=== PATIENT | female | born 1980 | race Caucasian/White ===

== ENCOUNTER 2016-10-14 07:11 | Emergency (ER) | payer SELFPAY ==
[2016-10-14] MEDS ORDERED: Diazepam 5 MG TAB ONE (07:48)
[2016-10-14] MEDS ORDERED: Ondansetron HCl/PF 4 MG/2 ML Vial ONE (07:48)
[2016-10-14] MEDS ORDERED: Ketorolac Tromethamine 30 MG/ML VIAL ONE (07:48)
[2016-10-14] MEDS ORDERED: Metoclopramide HCl 10 MG/2 ML VIAL ONE (07:49)
[2016-10-14] MEDS ORDERED: diphenhydrAMINE HCl 50 MG/ML 1 ML VIAL ONE (07:49)
--- NOTE | 2016-10-14 09:02 | ERRECORD ---
[facility] EMERGENCY RECORD HPI HEADACHE (07:45 LLDO) CHIEF COMPLAINT: Patient presents for evaluation of headache, Patient presents for evaluation of migraine headache, pt has long personal and family hx migraines. this one started about 0200 this morning. left sided. pounding and throbbing. considerable nausea w/o vomiting yet. photophobia. HISTORIAN: History provided by patient, History provided by patient's spouse. LOCATION: Symptoms are localized, most severe in the left baptism. QUALITY: Pain is dull in nature, described as aching, described as throbbing. SEVERITY: Maximum severity of symptoms severe, Currently symptoms are severe. TIME COURSE: Sudden onset of symptoms, Symptoms are worsening, Symptoms are constant. ASSOCIATED WITH FEMALE: No associated symptoms, Denies any other complaints, ONLY ABOVE. EXACERBATED BY: Patient's condition exacerbated by eye opening, Patient's condition exacerbated by light. RELIEVED BY: Patient's condition relieved by dark room, Patient's condition relieved by ice. RISK FACTORS: No subarachnoid hemorrhage risk factors, Subarachnoid hemorrahage risk factor analysis completed. ROS CONSTITUTIONAL: Historian reports fatigue. (07:48 LLDO) EYES: Historian reports photophobia. (07:48 LLDO) ENT: Negative ears, nose, throat review of systems, Historian denies epistaxis, denies rhinorrhea, denies sinus pain, denies sore throat. (07:52 LLDO) GI: Historian reports anorexia, reports appetite changes, reports nausea. (07:48 LLDO) MUSCULOSKELETAL: Negative musculoskeletal review of systems, Historian denies arthralgias, denies back pain, denies injury, denies myalgias, denies neck pain. (07:52 LLDO) SKIN: Negative skin review of systems, Historian denies cellulitis, denies rash, denies skin changes, denies skin lesions. (07:52 LLDO) NEUROLOGIC: Historian denies confusion, denies dizziness, denies dysphasia, denies focal weakness, denies gait changes, reports headache, denies irritability, denies lethargy, denies mental status changes. (07:48 LLDO) HEMO/LYMPHATIC: Normal hematologic/lymphatic system review, Historian denies abnormal blood clotting, denies gum bleeding, denies petechiae. (07:52 LLDO) ALLERGIC/IMMUNOLOGIC: Normal allergy/immunologic system review, Historian denies eczema, denies environmental allergies, denies food allergies. (07:52 LLDO) PSYCHIATRIC: Negative psychiatric review of systems, Historian denies alcohol abuse, denies anxiety, denies depression, denies drug abuse, denies hallucinations. (07:52 LLDO) &a-1R&a+25V*p+0X*[id number]*c202B*c15G*c2P*p-0X&a-25V&a+1R Name: Leona Hughes : 1980 6 MedRec: [id number] AcctNum: [id number] Prepared: Bridget Oct 14, 2016 09:22 by Interface Page 1 of 4 pMD [facility] EMERGENCY RECORD NOTES: All systems reviewed, negative except as described above. (07:48 LLDO) PAST MEDICAL HISTORY MEDICAL HISTORY: No past medical history, Notes: frequent headaches, Flu vaccine up to date, Tetanus not up to date, Pneumococcal vaccine not up to date. (07:27 SCHI) FEMALE SURGICAL HISTORY: Surgical history of cholecystectomy, Surgical history of tubal ligation, Surgical history of cholecystectomy, Surgical history of tubal ligation. (07:27 SCHI) SOCIAL HISTORY: Patient denies alcohol use, Patient denies drug use, Patient currently uses tobacco, smokes cigarettes, daily, Patient has smoked for 30 years, Patient smokes 1 pack per day, Lives at home, with family. (07:27 SCHI) NOTES: Nursing records reviewed, Agree with nursing records, Medication list reviewed. (07:52 LLDO) KNOWN ALLERGIES codeine sulfate Penicillins traMADol: Reaction: Nausea CURRENT MEDICATIONS No recorded medications VITAL SIGNS VITAL SIGNS: BP: 145/101, Pulse: 93, Resp: 20, Temp: 97.8 (Tympanic), Pain: 10 (Constant), O2 sat: 97 on Room Air, Time: 10/14/2016 07:20. (07:20 SCHI) BP: 149/89, Pulse: 84, Resp: 18, Pain: 9, O2 sat: 100 on 4L Oxygen, Time: 10/14/2016 08:05. (08:05 SCHI) BP: 137/81, Pulse: 75, Resp: 18, O2 sat: 97, Time: 10/14/2016 08:18. (08:18 SCHI) BP: 128/81, Pulse: 79, Resp: 18, Pain: 0, O2 sat: 95 on Room Air, Time: 10/14/2016 08:33. (08:33 SCHI) BP: 115/68, Pulse: 75, Resp: 18, Temp: 97. (Tympanic), Pain: 0, O2 sat: 96 on Room Air, Time: 10/14/2016 08:45. (08:45 SCHI) PHYSICAL EXAM CONSTITUTIONAL: Vital Signs Reviewed, Patient afebrile, Pulse normal, Blood pressure, BP ELEVATED, Respiratory rate normal, Patient appears, uncomfortable, Patient appears, in severe pain distress, Patient alert and oriented to person, place and time, Nursing notes reviewed. (07:51 LLDO) HEAD: Head exam normal, Head exam included findings of head atraumatic, normocephalic. (07:52 LLDO) EYES: Eye exam included findings of eyelids normal to inspection, Pupils equally round and reactive to light, Extraocular muscles &a-1R&a+25V*p+0X*[id number]*c202B*c15G*c2P*p-0X&a-25V&a+1R Name: Leona Hughes : 1980 F36 MedRec: [id number] AcctNum: [id number] Prepared: Bridget Oct 14, 2016 09:22 by Interface Page 2 of 4 pMD [facility] EMERGENCY RECORD intact, Conjunctiva normal, Sclera normal, Fundoscopic exam normal. (07:51 LLDO) ENT: ENT exam normal, Ear exam normal, Nose exam normal. (07:52 LLDO) NECK: Neck exam included findings of normal range of motion, Trachea midline, Thyroid normal, no meningeal signs, no cervical adenopathy, no tenderness. (07:51 LLDO) BACK: Back exam normal, Back exam included findings of normal inspection, range of motion normal. (07:52 LLDO) UPPER EXTREMITY: Upper extremity exam normal, Upper extremity exam included findings of inspection normal, Range of motion normal. (07:52 LLDO) LOWER EXTREMITY: Lower extremity exam normal, Lower extremity exam included findings of inspection normal, Range of motion normal. (07:52 LLDO) NEURO: Neuro exam findings include patient oriented to person, place and time, Speech normal, Gait normal, Memory normal, Cranial nerves intact, Deep tendon reflexes normal, no focal motor deficits, no focal sensory deficits, no cerebellar deficits, no nystagmus. (07:51 LLDO) SKIN: Skin exam normal, Skin exam included findings of skin warm, dry, and normal in color, no rash. (07:52 LLDO) PSYCHIATRIC: Psychiatric exam normal, Psychiatric exam included findings of patient oriented to person place and time, Normal affect. (07:52 LLDO) MEDICATION ADMINISTRATION SUMMARY Drug Name: Octamide Pfs, Dose Ordered: 20 mg, Route: IV Push, Status: Given, Time: 08:05 10/14/2016, Drug Name: Benadryl injection, Dose Ordered: 50 mg, Route: IV Push, Status: Given, Time: 08:00 10/14/2016, Drug Name: Toradol injection, Dose Ordered: 30 mg, Route: IV Push, Status: Given, Time: 07:59 10/14/2016, Drug Name: Zofran intravenous, Dose Ordered: 8 mg, Route: IV Push, Status: Given, Time: 07:58 10/14/2016, Drug Name: Valium oral, Dose Ordered: 10 mg, Route: Oral, Status: Given, Time: 07:57 10/14/2016, Drug Name: *sodium chloride 0.9 % intravenous, Dose Ordered: 1 L, Route: IV Fluid Infusion, Status: Given, Time: 07:44 10/14/2016, *Additional information available in notes, Detailed record available in Medication Service section. DOCTOR NOTES (08:52 LLDO) TEXT: headache gone. bp normal. re-exam normal. will d/c and let pcp f/u. PATIENT PLAN: The patient will be discharged, The patient will follow up with primary care physician. PROBLEM LIST &a-1R&a+25V*p+0X*[id number]*c202B*c15G*c2P*p-0X&a-25V&a+1R Name: Leona Hughes : 1980 F36 MedRec: [id number] AcctNum: [id number] Prepared: Bridget Oct 14, 2016 09:22 by Interface Page 3 of 4 pMD [facility] EMERGENCY RECORD No recorded problems DIAGNOSIS (08:53 LLDO) FINAL: PRIMARY: Migraine (unspecified). PRESCRIPTION No recorded prescriptions DISPOSITION PATIENT: Disposition Type: Discharge, Disposition: *Discharge Home. (08:53 ERVIN) Patient left the department. (09:15 MARILEE) Swenson: ERVIN=MD Logan, Maco HUNT=BETITO Garcia, Slinda &a-1R&a+25V*p+0X*[id number]*c202B*c15G*c2P*p-0X&a-25V&a+1R Name: Leona Hughes : 1980 F36 MedRec: [id number] AcctNum: [id number] Prepared: Bridget Oct 14, 2016 09:22 by Interface Page 4 of 4 pMD [facility]TDD
--- NOTE | 2016-10-14 09:06 | PICIS ---
[facility] EMERGENCY RECORD TRIAGE (TueOct 14, 2016 07:22 SCHI) TRIAGE NOTES: HEADACHE SINCE 2AM. (TueOct 14, 2016 07:22 SCHI) PATIENT: NAME: Leona Hughes, AGE: 36, GENDER: female, : Tue1980, TIME OF GREET: TueOct 14, 2016 07:12, PREFERRED LANGUAGE: Croatian, ETHNICITY: Not or , FALL RISK: NO, ECODE BILLING MAP: [facility], SSN: [id number], Zip Code: [address], KG WEIGHT: 92.99, PHONE: , , , PERSON ID: [id number], PCP: MD JACINTA, LALIT. (TueOct 14, 2016 07:22 SCHI) COMPLAINT: SEVERE HEADACHE. (TueOct 14, 2016 07:22 SCHI) ADMISSION: URGENCY: 4 Non Urgent, ADMISSION SOURCE: Home, TRANSPORT: Walk-in, BED: ED -05. (TueOct 14, 2016 07:22 SCHI) ASSESSMENT: Assessment: ALERT AND ORIENTED X 4, SKIN WARM AND DRY RESP EVEN AND UNLABORED,, Symptoms began 2am. (07:27 SCHI) PAIN: Patient complains of pain described as, Location head, Pain is constant. (07:27 SCHI) TRIAGE SCREENING: Patient denies suicidal ideation, Patient denies presence of domestic violence. (07:27 SCHI) PROVIDERS: TRIAGE NURSE: Hernan Garcia RN. (TueOct 14, 2016 07:22 SCHI) VITAL SIGNS: BP 145/101, Pulse 93, Resp 20, Temp 97.8, (Tympanic), Pain 10, (Constant), O2 Sat 97, on Room Air, Time 10/14/2016 07:20. (07:20 SCHI) PREVIOUS VISIT ALLERGIES: codeine sulfate, Penicillins. (TueOct 14, 2016 07:22 SCHI) codeine sulfate, Penicillins. (07:27 SCHI) KNOWN ALLERGIES codeine sulfate Penicillins traMADol: Reaction: Nausea CURRENT MEDICATIONS No recorded medications VITAL SIGNS VITAL SIGNS: BP: 145/101, Pulse: 93, Resp: 20, Temp: 97.8 (Tympanic), Pain: 10 (Constant), O2 sat: 97 on Room Air, Time: 10/14/2016 07:20. (07:20 SCHI) BP: 149/89, Pulse: 84, Resp: 18, Pain: 9, O2 sat: 100 on 4L Oxygen, Time: 10/14/2016 08:05. (08:05 SCHI) BP: 137/81, Pulse: 75, Resp: 18, O2 sat: 97, Time: 10/14/2016 08:18. (08:18 SCHI) BP: 128/81, Pulse: 79, Resp: 18, Pain: 0, O2 sat: 95 on Room Air, Time: 10/14/2016 08:33. (08:33 SCHI) BP: 115/68, Pulse: 75, Resp: 18, Temp: 97. (Tympanic), Pain: 0, O2 sat: 96 on Room Air, Time: 10/14/2016 08:45. (08:45 SCHI) NURSING ASSESSMENT: HEADACHE (07:33 SCHI) &a-1R&a+25V*p+0X*o6349N*c202B*c15G*c2P*p-0X&a-25V&a+1R Name: Leona Hughes : 1980 F36 MedRec: [id number] AcctNum: [id number] Prepared: Bridget Oct 14, 2016 09:28 by Interface Page 1 of 8 pMD [facility] EMERGENCY RECORD CONSTITUTIONAL: Patient arrives ambulatory, Gait steady, History obtained from patient, Patient appears comfortable, Patient cooperative, Patient alert, Oriented to person, place and time, Skin warm, Skin dry, Skin normal in color, Mucous membranes pink, Mucous membranes moist, Patient is well-groomed, Patient complains of HEADACHE AND NAUSEA, HEADACHE STARTED 2AM. PAIN: throbbing pain, to the right parietal region, on a scale 0-10 patient rates pain as 10. HEADACHE: history of migraines. NEURO: Pupils equally round and reactive to light, Able to close eyes, Hand grasps equal, Notes: NAUSEA NO VOMITING. NOTES: Patient tolerated procedure well. NURSING PROCEDURE: MEAT AND POULTRY INSPECTOR (07:46 SCHI) MEAT AND POULTRY INSPECTOR: , Patient placed on non-invasive blood pressure monitor, Patient placed on continuous pulse oximetry, Adult/pediatric oxisensor applied. NURSING PROCEDURE: DISCHARGE NOTE (09:00 SCHI) DISCHARGE: Patient discharged to home, ambulating without assistance, family driving, accompanied by other family member, Summary of Care printed/ provided, Patient requested and was provided an electronic copy of Discharge Instructions, Transition record given to patient, Discharge instructions given to patient, Simple or moderate discharge teaching performed, Medication reconciliation form given, Above person(s) verbalized understanding of discharge instructions and follow-up care, Patient treated and evaluated by physician. BELONGINGS: Belongings and valuables with patient at time of discharge include:, Belongings remain with patient, Valuables remain with patient. SAFETY: Side rails up, Cart/Stretcher in lowest position, Family at bedside, Hospital ID band on. NURSING PROCEDURE: IV PATIENT IDENITIFIER: Patient's identity verified by hospital ID bracelet, Patient's identity verified by family member. (07:44 SCHI) IV SITE 1: IV therapy indicated for hydration, IV therapy indicated for medication administration, IV established, to the left hand, using a 22 gauge catheter, in one attempt, IV site prepped with chloraprep, Flushed with normal saline (mls): 10, Labs drawn at time of placement, labeled in the presence of the patient and sent to lab, Saline lock established. (07:44 SCHI) FOLLOW-UP SITE 1: After procedure, 2x3 ensure dressing applied, After procedure, no drainage at IV site, After procedure, no swelling at IV site, After procedure, no redness at IV site. (07:44 SCHI) After procedure, 2x3 ensure dressing applied, After procedure, no drainage at IV site, After procedure, no swelling at IV site, After procedure, no redness at IV site, IV discontinued, due to patient being discharged, catheter intact. (09:00 SCHI) &a-1R&a+25V*p+0X*j7820M*c202B*c15G*c2P*p-0X&a-25V&a+1R Name: Leona Hughes : 1980 F36 MedRec: [id number] AcctNum: [id number] Prepared: Bridget Oct 14, 2016 09:28 by Interface Page 2 of 8 pMD [facility] EMERGENCY RECORD NURSING PROCEDURE: OXYGEN THERAPY (07:45 SCHI) OXYGEN THERAPY: 5L oxygen given, via nasal cannula applied. ORDER DETAILS Order Name: ERRT Oxygen Usage ER, Status: Active, Time: 07:32 10/14/2016, User: LL, - Ordered for: MD Ford Lloyd, - Entered by: MD Ford Lloyd - [facility] Oct 14, 2016 07:32, - Quantity: 1, Order Name: SALINE LOCK, Status: Done, Time: 07:46 10/14/2016, User: SCHGianna, - Ordered for: MD Ford Lloyd, - Entered by: MD Ford Lloyd - [facility] Oct 14, 2016 07:32, - Quantity: 1. MEDICATION ADMINISTRATION SUMMARY Drug Name: Octamide Pfs, Dose Ordered: 20 mg, Route: IV Push, Status: Given, Time: 08:05 10/14/2016, Drug Name: Benadryl injection, Dose Ordered: 50 mg, Route: IV Push, Status: Given, Time: 08:00 10/14/2016, Drug Name: Toradol injection, Dose Ordered: 30 mg, Route: IV Push, Status: Given, Time: 07:59 10/14/2016, Drug Name: Zofran intravenous, Dose Ordered: 8 mg, Route: IV Push, Status: Given, Time: 07:58 10/14/2016, Drug Name: Valium oral, Dose Ordered: 10 mg, Route: Oral, Status: Given, Time: 07:57 10/14/2016, Drug Name: *sodium chloride 0.9 % intravenous, Dose Ordered: 1 L, Route: IV Fluid Infusion, Status: Given, Time: 07:44 10/14/2016, *Additional information available in notes, Detailed record available in Medication Service section. MEDICATION SERVICE Benadryl injection: Order: Benadryl injection (diphenhydramine HCl) - Dose: 50 mg : IV Push Schedule: Now Ordered by: Mcao Ford MD Entered by: Maco Ford MD [facility] Oct 14, 2016 07:34 , Acknowledged by: Hernan Garcia RN [facility] Oct 14, 2016 07:47 Documented as given by: Hernan Garcia RN [facility] Oct 14, 2016 08:00 Patient, Medication, Dose, Route and Time verified prior to administration. IV SITE #1 IVP, subsequent different medication, Slowly, Awake and alert- acceptable. Octamide Pfs: Order: Octamide Pfs (metoclopramide HCl) - Dose: 20 mg : IV Push Ordered by: Maco Ford MD Entered by: Maco Ford MD [facility] Oct 14, 2016 07:34 , &a-1R&a+25V*p+0X*n6776D*c202B*c15G*c2P*p-0X&a-25V&a+1R Name: Leona Hughes : 1980 F36 MedRec: [id number] AcctNum: [id number] Prepared: [facility] Oct 14, 2016 09:28 by Interface Page 3 of 8 pMD [facility] EMERGENCY RECORD Acknowledged by: Hernan Garcia RN [facility] Oct 14, 2016 07:48 Documented as given by: Hernan Garcia RN [facility] Oct 14, 2016 08:05 Patient, Medication, Dose, Route and Time verified prior to administration. IV SITE #1 IVP, subsequent different medication, Slowly, Awake and alert- acceptable. sodium chloride 0.9 % intravenous: Order: sodium chloride 0.9 % intravenous (0.9 % sodium chloride) - Dose: 1 L : IV Fluid Infusion Notes: (Bolus) after bolus, lock Ordered by: Maco Ford MD Entered by: Maco Ford MD [facility] Oct 14, 2016 07:33 Documented as given by: Hernan Garcia RN [facility] Oct 14, 2016 07:44 Patient, Medication, Dose, Route and Time verified prior to administration. IV SITE #1 IV fluids established for hydration, IV SITE #1 into left hand, IV SITE #1 1st bag hung, amount 1 Liter hung, IV SITE #1 bolus of 1000 ml established, IV SITE #1 Rate of bolus, wide open, via primary tubing, Catheter placement confirmed via flush prior to administration, IV site without signs or symptoms of infiltration during medication administration, No swelling during administration, No drainage during administration, IV flushed after administration, Correct patient, time, route, dose and medication confirmed prior to administration, Patient advised of actions and side-effects prior to administration, Allergies confirmed and medications reviewed prior to administration. : Follow Up : Response assessment performed, No signs or symptoms of allergic reaction noted, Decreased pain, Decreased symptoms, _IV SITE #1:_, IV fluid infusion discontinued, on TueOct 14, 2016 09:00, Total fluid hydration time IV site 1 1 hour, 20 minutes, ., Total amount infused: 1000, IV Discontinued with catheter intact. [facility]09:00 [facility] Toradol injection: Order: Toradol injection (ketorolac tromethamine) - Dose: 30 mg : IV Push Schedule: Now Ordered by: Maco Ford MD Entered by: Maco Ford MD [facility] Oct 14, 2016 07:33 , Acknowledged by: Hernan Garcia RN [facility] Oct 14, 2016 07:48 Documented as given by: Hernan Garcia RN [facility] Oct 14, 2016 07:59 Patient, Medication, Dose, Route and Time verified prior to administration. IV SITE #1 IVP, subsequent different medication, Awake and alert- acceptable. Valium oral: Order: Valium oral (diazepam) - Dose: 10 mg : Oral Schedule: Now Ordered by: Maco Ford MD Entered by: Maco Ford MD [facility] Oct 14, 2016 07:35 , Acknowledged by: Hernan Garcia RN [facility] Oct 14, 2016 07:49 Documented as given by: Hernan Garcia RN [facility] Oct 14, 2016 07:57 &a-1R&a+25V*p+0X*s4056J*c202B*c15G*c2P*p-0X&a-25V&a+1R Name: Leona Hughes : 1980 F36 MedRec: [id number] AcctNum: [id number] Prepared: TueOct 14, 2016 09:28 by Interface Page 4 of 8 pMD [facility] EMERGENCY RECORD Patient, Medication, Dose, Route and Time verified prior to administration. Site: Medication administered P.O., Correct patient, time, route, dose and medication confirmed prior to administration, Patient advised of actions and side-effects prior to administration, Allergies confirmed and medications reviewed prior to administration. Zofran intravenous: Order: Zofran intravenous (ondansetron HCl) - Dose: 8 mg : IV Push Schedule: Now Ordered by: Maco Ford MD Entered by: Maco Ford MD [facility] Oct 14, 2016 07:33 , Acknowledged by: Hernan Garcia RN [facility] Oct 14, 2016 07:47 Documented as given by: Hernan Garcia RN [facility] Oct 14, 2016 07:58 Patient, Medication, Dose, Route and Time verified prior to administration. IV SITE #1 IVP, initial medication, Catheter placement confirmed via flush prior to administration, IV site without signs or symptoms of infiltration during medication administration, No swelling during administration, No drainage during administration, IV flushed after administration, Correct patient, time, route, dose and medication confirmed prior to administration, Patient advised of actions and side-effects prior to administration, Allergies confirmed and medications reviewed prior to administration. HPI HEADACHE (07:45 LLDO) CHIEF COMPLAINT: Patient presents for evaluation of headache, Patient presents for evaluation of migraine headache, pt has long personal and family hx migraines. this one started about 0200 this morning. left sided. pounding and throbbing. considerable nausea w/o vomiting yet. photophobia. HISTORIAN: History provided by patient, History provided by patient's spouse. LOCATION: Symptoms are localized, most severe in the left roman catholic. QUALITY: Pain is dull in nature, described as aching, described as throbbing. SEVERITY: Maximum severity of symptoms severe, Currently symptoms are severe. TIME COURSE: Sudden onset of symptoms, Symptoms are worsening, Symptoms are constant. ASSOCIATED WITH FEMALE: No associated symptoms, Denies any other complaints, ONLY ABOVE. EXACERBATED BY: Patient's condition exacerbated by eye opening, Patient's condition exacerbated by light. RELIEVED BY: Patient's condition relieved by dark room, Patient's condition relieved by ice. RISK FACTORS: No subarachnoid hemorrhage risk factors, Subarachnoid hemorrahage risk factor analysis completed. ROS CONSTITUTIONAL: Historian reports fatigue. (07:48 LLDO) EYES: Historian reports photophobia. (07:48 LLDO) &a-1R&a+25V*p+0X*a9124M*c202B*c15G*c2P*p-0X&a-25V&a+1R Name: Leona Hughes : 1980 F36 MedRec: [id number] AcctNum: [id number] Prepared: Bridget Oct 14, 2016 09:28 by Interface Page 5 of 8 pMD [facility] EMERGENCY RECORD ENT: Negative ears, nose, throat review of systems, Historian denies epistaxis, denies rhinorrhea, denies sinus pain, denies sore throat. (07:52 LLDO) GI: Historian reports anorexia, reports appetite changes, reports nausea. (07:48 LLDO) MUSCULOSKELETAL: Negative musculoskeletal review of systems, Historian denies arthralgias, denies back pain, denies injury, denies myalgias, denies neck pain. (07:52 LLDO) SKIN: Negative skin review of systems, Historian denies cellulitis, denies rash, denies skin changes, denies skin lesions. (07:52 LLDO) NEUROLOGIC: Historian denies confusion, denies dizziness, denies dysphasia, denies focal weakness, denies gait changes, reports headache, denies irritability, denies lethargy, denies mental status changes. (07:48 LLDO) HEMO/LYMPHATIC: Normal hematologic/lymphatic system review, Historian denies abnormal blood clotting, denies gum bleeding, denies petechiae. (07:52 LLDO) ALLERGIC/IMMUNOLOGIC: Normal allergy/immunologic system review, Historian denies eczema, denies environmental allergies, denies food allergies. (07:52 LLDO) PSYCHIATRIC: Negative psychiatric review of systems, Historian denies alcohol abuse, denies anxiety, denies depression, denies drug abuse, denies hallucinations. (07:52 LLDO) NOTES: All systems reviewed, negative except as described above. (07:48 LLDO) PAST MEDICAL HISTORY MEDICAL HISTORY: No past medical history, Notes: frequent headaches, Flu vaccine up to date, Tetanus not up to date, Pneumococcal vaccine not up to date. (07:27 SCHI) FEMALE SURGICAL HISTORY: Surgical history of cholecystectomy, Surgical history of tubal ligation, Surgical history of cholecystectomy, Surgical history of tubal ligation. (07:27 SCHI) SOCIAL HISTORY: Patient denies alcohol use, Patient denies drug use, Patient currently uses tobacco, smokes cigarettes, daily, Patient has smoked for 30 years, Patient smokes 1 pack per day, Lives at home, with family. (07:27 SCHI) NOTES: Nursing records reviewed, Agree with nursing records, Medication list reviewed. (07:52 LLDO) PHYSICAL EXAM CONSTITUTIONAL: Vital Signs Reviewed, Patient afebrile, Pulse normal, Blood pressure, BP ELEVATED, Respiratory rate normal, Patient appears, uncomfortable, Patient appears, in severe pain distress, Patient alert and oriented to person, place and time, Nursing notes reviewed. (07:51 LLDO) HEAD: Head exam normal, Head exam included findings of head &a-1R&a+25V*p+0X*v5287G*c202B*c15G*c2P*p-0X&a-25V&a+1R Name: Leona Hughes : 1980 F36 MedRec: [id number] AcctNum: [id number] Prepared: TueOct 14, 2016 09:28 by Interface Page 6 of 8 pMD [facility] EMERGENCY RECORD atraumatic, normocephalic. (07:52 LLDO) EYES: Eye exam included findings of eyelids normal to inspection, Pupils equally round and reactive to light, Extraocular muscles intact, Conjunctiva normal, Sclera normal, Fundoscopic exam normal. (07:51 LLDO) ENT: ENT exam normal, Ear exam normal, Nose exam normal. (07:52 LLDO) NECK: Neck exam included findings of normal range of motion, Trachea midline, Thyroid normal, no meningeal signs, no cervical adenopathy, no tenderness. (07:51 LLDO) BACK: Back exam normal, Back exam included findings of normal inspection, range of motion normal. (07:52 LLDO) UPPER EXTREMITY: Upper extremity exam normal, Upper extremity exam included findings of inspection normal, Range of motion normal. (07:52 LLDO) LOWER EXTREMITY: Lower extremity exam normal, Lower extremity exam included findings of inspection normal, Range of motion normal. (07:52 LLDO) NEURO: Neuro exam findings include patient oriented to person, place and time, Speech normal, Gait normal, Memory normal, Cranial nerves intact, Deep tendon reflexes normal, no focal motor deficits, no focal sensory deficits, no cerebellar deficits, no nystagmus. (07:51 LLDO) SKIN: Skin exam normal, Skin exam included findings of skin warm, dry, and normal in color, no rash. (07:52 LLDO) PSYCHIATRIC: Psychiatric exam normal, Psychiatric exam included findings of patient oriented to person place and time, Normal affect. (07:52 LLDO) EVENTS TRANSFER: Triage to Emergency Main ED -05. (TueOct 14, 2016 07:22 SCHI) Removed from Emergency Main ED -05. (09:15 SCHI) DOCTOR NOTES (08:52 LLDO) TEXT: headache gone. bp normal. re-exam normal. will d/c and let pcp f/u. PATIENT PLAN: The patient will be discharged, The patient will follow up with primary care physician. PROBLEM LIST No recorded problems DIAGNOSIS (08:53 LLDO) FINAL: PRIMARY: Migraine (unspecified). DISPOSITION PATIENT: Disposition Type: Discharge, Disposition: *Discharge Home. (08:53 LLDO) Patient left the department. (09:15 SCHI) &a-1R&a+25V*p+0X*s5670P*c202B*c15G*c2P*p-0X&a-25V&a+1R Name: Leona Hughes : 1980 F36 MedRec: [id number] AcctNum: [id number] Prepared: TueOct 14, 2016 09:28 by Interface Page 7 of 8 pMD [facility] EMERGENCY RECORD INSTRUCTION (08:54 LLDO) DISCHARGE: MIGRAINE HEADACHE. FOLLOWUP: MD JACINTA, LALIT, [facility], [address] [place] [id number], [phone], Follow up with Primary Care Physician as needed. SPECIAL: Follow-up with your PCP. PRESCRIPTION No recorded prescriptions IMAGING (09:11 SCHI) *DISCHARGE INSTRUCTIONS RECEIPT: Image captured from scanner. *SUPPLY CHARGE SHEET: Image captured from scanner. ADMIN DIGITAL SIGNATURE: MD Ford Lloyd. (08:54 LLDO) BETITO Garcia, Hernan. (09:15 SCHI) Swenson: LLDO=MD Ford Lloyd SCHI=BETITO Garcia Slinda &a-1R&a+25V*p+0X*n3960X*c202B*c15G*c2P*p-0X&a-25V&a+1R Name: Leona Hughes : 1980 F36 MedRec: [id number] AcctNum: [id number] Prepared: TueOct 14, 2016 09:28 by Interface Page 8 of 8 pMD [facility] MEDICATION RECONCILIATION You were seen in the Emergency Department on: TueOct 14, 2016 KNOWN ALLERGIES codeine sulfate Penicillins traMADol: Reaction: Nausea MEDICATIONS GIVEN WHILE IN THE EMERGENCY DEPARTMENT sodium chloride 0.9 % intravenous (0.9 % sodium chloride) - Dose: 1 liter(s) : IV Fluid Infusion Toradol injection (ketorolac tromethamine) - Dose: 30 milligram(s) : IV Push Zofran intravenous (ondansetron HCl) - Dose: 8 milligram(s) : IV Push Benadryl injection (diphenhydramine HCl) - Dose: 50 milligram(s) : IV Push Octamide Pfs (metoclopramide HCl) - Dose: 20 milligram(s) : IV Push Valium oral (diazepam) - Dose: 10 milligram(s) : Oral Notes from the emergency department Reviewed with family Reviewed with patient &a-1R&a+25V*p+0X*t0357U*c202B*c15G*c2P*p-0X&a-25V&a+1R Name: Leona Hughes : 1980 F36 MedRec: [id number] AcctNum: [id number] Prepared: TueOct 14, 2016 09:28 by Interface pMPadmaja MICHELLE
[2016-10-14] MEDS ORDERED: Sodium Chloride 0.9% 1,000 ML BAG ONE (13:21)
== END 2016-10-14 09:00 | disposition home or self-care (01) ==
LOC: MADERS 07:11
DX: G43.909 Migraine, unspecified, not intractable, without status migrainosus (principal); F17.210 Nicotine dependence, cigarettes, uncomplicated
CPT/HCPCS: 96361; 96374; 96375; J1200; J1885; J2405; J2765; J7050

== ENCOUNTER 2016-11-24 13:34 | Emergency (ER) | payer SELFPAY ==
--- NOTE | 2016-11-24 14:02 | RAD ---
FRONTAL VIEW CHEST: Date: 11/24/16 COMPARISON: 02/06/08. INDICATION: Chest pain. FINDINGS: There is no consolidation, effusion, or pneumothorax. The cardiac silhouette is normal in size. IMPRESSION: Stable chest, without consolidation. POS: CHERRI
[2016-11-24] MEDS ORDERED: Lidocaine Viscous Sol 2% 15 ml UD Cup ONE (14:04)
[2016-11-24] MEDS ORDERED: Mag-Al Plus 1200 MG/1200 MG/120 MG/30 ML UDCUP ONE (14:04)
[2016-11-24 14:12] LABS: #Basophils 0.1 thou/uL (0.0-0.2); #Eosinphils 0.3 thou/uL (0.0-0.7); #Lymphocytes 1.9 thou/uL (1.20-3.40); #Monocytes 0.5 thou/uL (0.11-0.59); #Neutrophils 7.8 thou/uL (1.40-6.50); %Basophils 1.1 % (0.0-1.0); %Eosinophils 2.9 % (0.0-10.0); %Lymphocytes 18.2 % (21.0-51.0); %Monocytes 4.5 % (0.0-10.0); %Neutrophils 73.3 % (42.0-75.0); Hemoglobin 14.4 g/dL (12.0-16.0); Mean Corpuscular HGB CONC 33.5 g/dL (32.0-36.0); Mean Corpuscular Hemoglobin 31.4 pg (27.0-31.0); Mean Corpuscular Volume 93.8 fl (81.0-99.0); Mean Platelet Volume 10.4 fL (7.4-10.4); Platelet Count 244 thou/uL (130-400); RBC Distribution Width 12.5 % (11.5-14.5); Red Blood Cell (RBC) Count 4.58 mill/uL (4.20-5.40); White Blood Cell (WBC) Count 10.6 thou/uL (4.8-10.8)
[2016-11-24 14:26] LABS: CKMB 1.9 ng/mL (0-6.6)
[2016-11-24 14:28] LABS: BHCG - Serum NEGATIVE (NEGATIVE)
[2016-11-24 14:29] LABS: Pregs Control Background? CLEAR/WHITE (CLR/WHITE); Pregs Control Bar Appear? YES (CONTROL BAR)
[2016-11-24 14:30] LABS: ALT (SGPT) 18 U/L (0-55); AST (SGOT) 18 U/L (5-34); Albumin 4.1 g/dL (3.5-5.0); Alkaline Phosphatase 114 U/L (40-150); Anion Gap 15 mmol/L (10-20); BUN (Urea Nitrogen) 9 mg/dL (7.0-18.7); Bilirubin, Total Less than 0.3 mg/dL (0.2-1.2); Calc. Creatinine Clearance 0 mL/min (70-130); Calcium 9.1 mg/dL (7.8-10.44); Carbon Dioxide 22 mmol/L (22-29); Chloride 105 mmol/L (98-107); Estimated GFR-MDRD Greater than 90; Globulin 2.6 g/dL (2.4-3.5); Glucose 132 mg/dL (70-105); Lipase 19 U/L (8-78); Protein, Total 6.7 g/dL (6.0-8.3); Sodium 138 mmol/L (136-145)
== END 2016-11-24 15:23 | disposition home or self-care (01) ==
LOC: MADERS 13:34
DX: R10.13 Epigastric pain (principal); F41.9 Anxiety disorder, unspecified; F17.210 Nicotine dependence, cigarettes, uncomplicated
CPT/HCPCS: 36415; 71010; 80053; 82553; 83690; 84484; 84703; 85025; 93005

== ENCOUNTER 2017-01-24 15:13 | Emergency (ER) | payer MEDICAID, SELFPAY ==
[2017-01-24] MEDS ORDERED: Ketorolac Tromethamine 30 MG/ML VIAL ONE (15:36)
== END 2017-01-24 15:55 | disposition home or self-care (01) ==
LOC: MADERS 15:13
DX: B34.9 Viral infection, unspecified (principal); K03.81 Cracked tooth; F17.210 Nicotine dependence, cigarettes, uncomplicated
CPT/HCPCS: 96372; J1885

== ENCOUNTER 2017-02-17 09:42 | Emergency (ER) | payer MEDICAID ==
[2017-02-17] MEDS ORDERED: diphenhydrAMINE HCl 50 MG/ML 1 ML VIAL ONE (10:24)
[2017-02-17] MEDS ORDERED: Ketorolac Tromethamine 30 MG/ML VIAL ONE (10:24)
[2017-02-17] MEDS ORDERED: Metoclopramide HCl 10 MG/2 ML VIAL ONE (10:24)
[2017-02-17] MEDS ORDERED: Sodium Chloride 0.9% 1,000 ML BAG ONE (14:20)
== END 2017-02-17 11:45 | disposition home or self-care (01) ==
LOC: MADERS 09:42
DX: G43.829 Menstrual migraine, not intractable, without status migrainosus (principal); F17.210 Nicotine dependence, cigarettes, uncomplicated
CPT/HCPCS: 96361; 96374; 96375; J1200; J1885; J2765; J7050

== ENCOUNTER 2017-03-19 09:24 | Emergency (ER) | payer MEDICAID, SELFPAY ==
[2017-03-19] MEDS ORDERED: Cephalexin 500 MG CAP ONE (10:00)
[2017-03-19] MEDS ORDERED: Benzonatate 100 MG CAP ONE (10:00)
[2017-03-19] MEDS ORDERED: Oxymetazoline HCl 0.05% ( 15 ML ) ONE (10:00)
== END 2017-03-19 10:10 | disposition home or self-care (01) ==
LOC: MADERS 09:24
DX: J01.90 Acute sinusitis, unspecified (principal); G43.909 Migraine, unspecified, not intractable, without status migrainosus; F17.210 Nicotine dependence, cigarettes, uncomplicated; Z79.899 Other long term (current) drug therapy
CPT/HCPCS: 99283

== ENCOUNTER 2017-04-17 07:21 | Emergency (ER) | payer MEDICAID, SELFPAY ==
[2017-04-17] MEDS ORDERED: Ondansetron ODT 4 MG TAB ONE (07:44)
[2017-04-17] MEDS ORDERED: Ketorolac Tromethamine 60 MG/2 ML VIAL ONE (07:44)
== END 2017-04-17 08:15 | disposition home or self-care (01) ==
LOC: MADERS 07:21
DX: G43.909 Migraine, unspecified, not intractable, without status migrainosus (principal); F17.210 Nicotine dependence, cigarettes, uncomplicated; Z79.899 Other long term (current) drug therapy
CPT/HCPCS: 96372; J1885; Q0162

== ENCOUNTER 2017-05-23 18:38 | Emergency (ER) | payer MEDICAID | END 2017-05-23 21:28 | disposition left against medical advice (07) | LOC: MADERS 18:38 | DX: Z53.21 Procedure and treatment not carried out due to patient leaving prior to being seen by health care provider (principal) ==

== ENCOUNTER 2017-08-13 17:18 | Emergency (ER) | payer MEDICAID | END 2017-08-13 18:04 | disposition home or self-care (01) | LOC: MADERS 17:18 | DX: H65.91 Unspecified nonsuppurative otitis media, right ear (principal); J20.9 Acute bronchitis, unspecified; F17.210 Nicotine dependence, cigarettes, uncomplicated; G43.829 Menstrual migraine, not intractable, without status migrainosus | CPT/HCPCS: 99282 ==

== ENCOUNTER 2017-10-06 13:51 | Emergency (ER) | payer SELFPAY ==
[2017-10-06] MEDS ORDERED: Metoclopramide HCl 10 MG/2 ML VIAL ONE (14:11)
[2017-10-06] MEDS ORDERED: diphenhydrAMINE 50 MG/ML VIAL ONE (14:11)
[2017-10-06] MEDS ORDERED: Ketorolac Tromethamine 30 MG/ML VIAL ONE (14:11)
== END 2017-10-06 15:10 | disposition home or self-care (01) ==
LOC: MADERS 13:51
DX: G43.909 Migraine, unspecified, not intractable, without status migrainosus (principal); F17.210 Nicotine dependence, cigarettes, uncomplicated
CPT/HCPCS: 96374; 96375; J1200; J1885; J2765

== ENCOUNTER 2018-03-14 11:04 | Emergency (ER) | payer MEDICAID, SELFPAY ==
[~2018-03-14 11:04] MED LIST: Sodium Chloride 0.9% 1,000 ML BAG ONE
[2018-03-14] MEDS ORDERED: Ketorolac Tromethamine 30 MG/ML VIAL ONE (11:42)
[2018-03-14] MEDS ORDERED: Metoclopramide HCl 10 MG/2 ML VIAL ONE (11:42)
[2018-03-14] MEDS ORDERED: diphenhydrAMINE 50 MG/ML VIAL ONE (11:42)
[2018-03-14] MEDS ORDERED: Ondansetron ODT 4 MG TAB ONE (11:42)
== END 2018-03-14 13:00 | disposition home or self-care (01) ==
LOC: MADERS 11:04
DX: G43.909 Migraine, unspecified, not intractable, without status migrainosus (principal); F17.210 Nicotine dependence, cigarettes, uncomplicated; Z79.899 Other long term (current) drug therapy
CPT/HCPCS: 96361; 96374; 96375; J1200; J1885; J2765; J7050; Q0162

== ENCOUNTER 2018-08-10 13:57 | Emergency (ER) | payer MEDICAID, SELFPAY ==
[2018-08-10] MEDS ORDERED: LEVOFLOXACIN ONE (14:58)
[2018-08-10] MEDS ORDERED: D5W ONE (14:58)
[2018-08-10] MEDS ORDERED: Levofloxacin 500 mg/D5W 100 ml Premix Bag ONE (14:58)
[2018-08-10] MEDS ORDERED: Ibuprofen 800 MG TAB ONE (14:58)
== END 2018-08-10 14:55 | disposition home or self-care (01) ==
LOC: MADERS 13:57
DX: K02.9 Dental caries, unspecified (principal); F17.210 Nicotine dependence, cigarettes, uncomplicated; Z79.899 Other long term (current) drug therapy
CPT/HCPCS: 99282; J1956

== ENCOUNTER 2019-05-09 17:04 | Emergency (ER) | payer SELFPAY ==
[2019-05-09 17:44] LABS: #Basophils 0.1 thou/uL (0.0-0.2); #Eosinphils 0.2 thou/uL (0.0-0.7); #Lymphocytes 2.4 thou/uL (1.20-3.40); #Monocytes 0.6 thou/uL (0.11-0.59); #Neutrophils 9.5 thou/uL (1.40-6.50); %Eosinophils 1.4 % (0.0-10.0); %Lymphocytes 18.6 % (21.0-51.0); %Monocytes 4.6 % (0.0-10.0); %Neutrophils 74.4 % (42.0-75.0); Hemoglobin 13.8 g/dL (12.0-16.0); Mean Corpuscular Hemoglobin 29.6 pg (27.0-31.0); Mean Corpuscular Volume 89.5 fL (78.0-98.0); Mean Platelet Volume 7.5 fL (7.4-10.4); Platelet Count 314 thou/uL (130-400); RBC Distribution Width 13.4 % (11.5-14.5); Red Blood Cell (RBC) Count 4.67 mill/uL (4.20-5.40); White Blood Cell (WBC) Count 12.8 thou/uL (4.8-10.8)
[2019-05-09 18:03] LABS: ALT (SGPT) 15 U/L (8-55); AST (SGOT) 21 U/L (5-34); Albumin 4.4 g/dL (3.5-5.0); Alkaline Phosphatase 120 U/L (40-150); Anion Gap 16 mmol/L (10-20); BUN (Urea Nitrogen) 8 mg/dL (7.0-18.7); Bilirubin, Total 0.3 mg/dL (0.2-1.2); CK (CPK) 86 U/L (29-168); Calc. Creatinine Clearance 0 mL/min (70-130); Calcium 9.4 mg/dL (7.8-10.44); Carbon Dioxide 23 mmol/L (22-29); Chloride 103 mmol/L (98-107); Estimated GFR-MDRD Greater than 90; Globulin 3.2 g/dL (2.4-3.5); Glucose 95 mg/dL (70-105); Potassium 4.4 mmol/L (3.5-5.1); Protein, Total 7.6 g/dL (6.0-8.3); Sodium 138 mmol/L (136-145)
--- NOTE | 2019-05-09 19:29 | RAD ---
PORTABLE CHEST: 05/09/19 PROVIDED CLINICAL HISTORY: Chest pain. FINDINGS: Comparison 11/24/16. Evaluation is limited by patient body habitus. The cardiac and mediastinal silhouette is within jennifer l limits. No focal consolidation, pleural fluid or pneumothorax apparent. IMPRESSION: No evidence for an acute cardiopulmonary process. POS: SULMA
== END 2019-05-09 19:21 | disposition home or self-care (01) ==
LOC: MADERS 17:04
DX: R07.9 Chest pain, unspecified (principal); E78.5 Hyperlipidemia, unspecified; I10 Essential (primary) hypertension; F17.210 Nicotine dependence, cigarettes, uncomplicated; E78.00 Pure hypercholesterolemia, unspecified; F41.9 Anxiety disorder, unspecified; K21.9 Gastro-esophageal reflux disease without esophagitis; E55.9 Vitamin D deficiency, unspecified
CPT/HCPCS: 71045; 80053; 82550; 84484; 85025; 93005

== ENCOUNTER 2019-12-15 07:37 | Emergency (ER) | payer SELFPAY ==
[2019-12-15] MEDS ORDERED: Ondansetron ODT 4 MG TAB ONE (08:10)
== END 2019-12-15 08:26 | disposition home or self-care (01) ==
LOC: MADERS 07:37
DX: T63.481A Toxic effect of venom of other arthropod, accidental (unintentional), initial encounter (principal); L25.8 Unspecified contact dermatitis due to other agents; F41.9 Anxiety disorder, unspecified; K21.9 Gastro-esophageal reflux disease without esophagitis; E78.5 Hyperlipidemia, unspecified; E78.00 Pure hypercholesterolemia, unspecified; I10 Essential (primary) hypertension; F17.210 Nicotine dependence, cigarettes, uncomplicated
CPT/HCPCS: 96372; 99282; J1040; Q0162

== ENCOUNTER 2020-12-17 17:33 | Outpatient (CLI) | payer MEDICAID, SELFPAY | END 2020-12-17 17:34 | disposition home or self-care (01) | LOC: MADLAB 17:33 | PROVIDERS: ATTEND Family Medicine | DX: Z01.419 Encounter for gynecological examination (general) (routine) without abnormal findings (principal) | CPT/HCPCS: 88164; P3000 ==

== ENCOUNTER 2021-01-11 10:31 | Emergency (ER) | payer MEDICAID, SELFPAY ==
[2021-01-11 11:24] LABS: Bilirubin Negative (Negative); Blood, Urine Negative (Negative); Clarity Clear (Clear); Glucose, Urine (Dipstick) Negative (Negative); Ketone, Urine Negative (Negative); Leukocyte Negative (Negative); Nitrite Negative (Negative); Protein, Urine (Dipstick) Negative (Neg-Trace); Urobilinogen 0.2 mg/dL (Less than 2)
[2021-01-11 11:32] LABS: Pregnancy Test - Urine (BHCG) Negative (Negative); Pregu Control Background? CLEAR/WHITE (CLR/WHITE); Pregu Control Bar Appear? YES (CONTROL BAR)
[2021-01-11] MEDS ORDERED: Ibuprofen 800 MG TAB ONE (11:50)
[2021-01-11] MEDS ORDERED: Acetaminophen 500 MG TAB ONE (11:50)
== END 2021-01-11 11:57 | disposition home or self-care (01) ==
LOC: MADERS 10:31
DX: M54.9 Dorsalgia, unspecified (principal); K21.9 Gastro-esophageal reflux disease without esophagitis; E78.5 Hyperlipidemia, unspecified; E78.00 Pure hypercholesterolemia, unspecified; I10 Essential (primary) hypertension; F17.210 Nicotine dependence, cigarettes, uncomplicated; E55.9 Vitamin D deficiency, unspecified
CPT/HCPCS: 71046; 81003; 81025

== ENCOUNTER 2021-05-28 20:58 | Emergency (ER) | payer SELFPAY ==
[2021-05-28] MEDS ORDERED: Dexamethasone 4 MG TAB ONE (21:18)
[2021-05-28] MEDS ORDERED: Lorazepam 1 MG TAB ONE (21:18)
[2021-05-28] MEDS ORDERED: Ipratropium Bromide 2.5 ml Neb ONE (21:18)
== END 2021-05-28 22:21 | disposition home or self-care (01) ==
LOC: MADERS 20:58
DX: J45.901 Unspecified asthma with (acute) exacerbation (principal); F41.9 Anxiety disorder, unspecified; I10 Essential (primary) hypertension; E78.00 Pure hypercholesterolemia, unspecified; K21.9 Gastro-esophageal reflux disease without esophagitis; E78.5 Hyperlipidemia, unspecified; E55.9 Vitamin D deficiency, unspecified; F17.210 Nicotine dependence, cigarettes, uncomplicated; Z79.899 Other long term (current) drug therapy
CPT/HCPCS: 71046; J8540

== ENCOUNTER 2021-06-22 18:08 | Emergency (ER) | payer SELFPAY ==
[2021-06-22 20:18] LABS: #Basophils 0.1 thou/uL (0.0-0.2); #Eosinphils 0.2 thou/uL (0.0-0.7); #Lymphocytes 1.8 thou/uL (1.20-3.40); #Monocytes 0.6 thou/uL (0.11-0.59); #Neutrophils 6.6 thou/uL (1.40-6.50); %Basophils 1.4 % (0.0-1.0); %Lymphocytes 19.6 % (21.0-51.0); %Monocytes 6.8 % (0.0-10.0); %Neutrophils 70.3 % (42.0-75.0); Hemoglobin 15.2 g/dL (12.0-16.0); Mean Corpuscular Hemoglobin 29.3 pg (27.0-31.0); Mean Corpuscular Volume 91.5 fL (78.0-98.0); Mean Platelet Volume 8.6 fL (7.4-10.4); Platelet Count 285 thou/uL (130-400); Red Blood Cell (RBC) Count 5.19 mill/uL (4.20-5.40); White Blood Cell (WBC) Count 9.4 thou/uL (4.8-10.8)
[2021-06-22 20:37] LABS: Anion Gap 15 mmol/L (10-20); BUN (Urea Nitrogen) 7 mg/dL (7.0-18.7); Calc. Creatinine Clearance 0 mL/min (70-130); Calcium 9.6 mg/dL (7.8-10.44); Carbon Dioxide 23 mmol/L (22-29); Chloride 105 mmol/L (98-107); Glucose 92 mg/dL (70-105); Potassium 4.2 mmol/L (3.5-5.1); Sodium 139 mmol/L (136-145)
[2021-06-22 20:38] LABS: ALT (SGPT) 25 U/L (8-55); AST (SGOT) 18 U/L (5-34); Albumin 4.3 g/dL (3.5-5.0); Alkaline Phosphatase 133 U/L (40-110); Bilirubin, Total 0.4 mg/dL (0.2-1.2); CK (CPK) 121 U/L (29-168); Globulin 2.9 g/dL (2.4-3.5); Protein, Total 7.2 g/dL (6.0-8.3)
== END 2021-06-22 21:53 | disposition home or self-care (01) ==
LOC: MADERS 18:08
DX: J45.901 Unspecified asthma with (acute) exacerbation (principal); F41.9 Anxiety disorder, unspecified; K21.9 Gastro-esophageal reflux disease without esophagitis; E55.9 Vitamin D deficiency, unspecified; E78.5 Hyperlipidemia, unspecified; E78.00 Pure hypercholesterolemia, unspecified; I10 Essential (primary) hypertension; F17.210 Nicotine dependence, cigarettes, uncomplicated; G43.909 Migraine, unspecified, not intractable, without status migrainosus
CPT/HCPCS: 36415; 71045; 80053; 82550; 85025; 96372; J1040; J7620

== ENCOUNTER 2021-07-11 07:11 | Emergency (ER) | payer SELFPAY ==
[2021-07-11] MEDS ORDERED: methylPREDNISolone Sod Succ/PF 125 MG/2 ML VIAL ONE (08:13)
[2021-07-11] MEDS ORDERED: Magnesium 2 GM/50 ML BAG (IN WATER) ONE (08:13)
[2021-07-11 08:15] LABS: #Basophils 0.1 thou/uL (0.0-0.2); #Lymphocytes 1.1 thou/uL (1.20-3.40); #Monocytes 0.5 thou/uL (0.11-0.59); #Neutrophils 7.2 thou/uL (1.40-6.50); %Basophils 0.6 % (0.0-1.0); %Eosinophils 0.4 % (0.0-10.0); %Lymphocytes 12.4 % (21.0-51.0); %Neutrophils 80.6 % (42.0-75.0); Hemoglobin 14.8 g/dL (12.0-16.0); Mean Corpuscular HGB CONC 32.3 g/dL (32.0-36.0); Mean Corpuscular Hemoglobin 29.2 pg (27.0-31.0); Mean Corpuscular Volume 90.4 fL (78.0-98.0); Mean Platelet Volume 9.4 fL (7.4-10.4); Platelet Count 201 thou/uL (130-400); RBC Distribution Width 12.8 % (11.5-14.5); Red Blood Cell (RBC) Count 5.05 mill/uL (4.20-5.40); White Blood Cell (WBC) Count 8.9 thou/uL (4.8-10.8)
[2021-07-11 08:29] LABS: ALT (SGPT) 13 U/L (8-55); AST (SGOT) 16 U/L (5-34); Albumin 4.3 g/dL (3.5-5.0); Alkaline Phosphatase 116 U/L (40-110); Anion Gap 14 mmol/L (10-20); BUN (Urea Nitrogen) 7 mg/dL (7.0-18.7); Bilirubin, Total 0.5 mg/dL (0.2-1.2); CK (CPK) 65 U/L (29-168); Calc. Creatinine Clearance 0 mL/min (70-130); Calcium 9.6 mg/dL (7.8-10.44); Carbon Dioxide 24 mmol/L (22-29); Chloride 105 mmol/L (98-107); Globulin 3.1 g/dL (2.4-3.5); Glucose 107 mg/dL (70-105); Potassium 3.6 mmol/L (3.5-5.1); Protein, Total 7.4 g/dL (6.0-8.3); Sodium 139 mmol/L (136-145)
[2021-07-11 09:09] LABS: SARS-CoV-2 NAA Rapid Test Not Detected (NotDetected)
[2021-07-11] MEDS ORDERED: Azithromycin 250 MG TAB ONE (09:24)
[2021-07-11] MEDS ORDERED: Dexamethasone 10 MG/ML VIAL ONE (09:24)
[2021-07-11] MEDS ORDERED: cefTRIAXone\\ROCEPHIN 1 GM VIAL ONE (09:25)
== END 2021-07-11 09:55 | disposition home or self-care (01) ==
LOC: MADERS 07:11
DX: J45.902 Unspecified asthma with status asthmaticus (principal); J44.1 Chronic obstructive pulmonary disease with (acute) exacerbation; Z20.822 Contact with and (suspected) exposure to COVID-19; E78.5 Hyperlipidemia, unspecified; E78.00 Pure hypercholesterolemia, unspecified; I10 Essential (primary) hypertension; F17.210 Nicotine dependence, cigarettes, uncomplicated; K21.9 Gastro-esophageal reflux disease without esophagitis; E55.9 Vitamin D deficiency, unspecified; Z71.6 Tobacco abuse counseling; Z79.899 Other long term (current) drug therapy
CPT/HCPCS: 0240U; 71045; 80053; 82550; 83880; 84484; 85025; 93005; 94640; 94760; 96365; 96375; J0696; J1100; J2930; J3475; J7620

== ENCOUNTER 2021-10-22 01:51 | Emergency (ER) | payer SELFPAY ==
[2021-10-22] MEDS ORDERED: Ipratropium Bromide 2.5 ml Neb ONE ×3 (02:10→04:36)
[2021-10-22] MEDS ORDERED: Albuterol Sulfate 2.5 mg/3 ml Neb ONE ×2 (02:11→02:13)
[2021-10-22] MEDS ORDERED: Albuterol Sulfate 2.5 mg/0.5 ml Neb ONE ×2 (03:10→04:36)
[2021-10-22] MEDS ORDERED: methylPREDNISolone Sod Succ/PF 125 MG/2 ML VIAL ONE (03:10)
[2021-10-22] MEDS ORDERED: Ketorolac Tromethamine 30 MG/ML VIAL ONE (03:10)
[2021-10-22 03:12] LABS: Band 4 % (5-11); Eosinophils 1 % (0-10); Hemoglobin 14.6 g/dL (12.0-16.0); Lymphocytes 7 % (21-51); MDiff Complete? YES; Mean Corpuscular HGB CONC 32.3 g/dL (32.0-36.0); Mean Corpuscular Hemoglobin 29.5 pg (27.0-31.0); Mean Corpuscular Volume 91.3 fL (78.0-98.0); Mean Platelet Volume 8.7 fL (7.4-10.4); Monocytes 6 % (0-10); Neutrophil 77 % (42-75); Platelet Count 215 thou/uL (130-400); RBC Distribution Width 13.1 % (11.5-14.5); RBC Morphology Normal; Reactive Lymphocytes 5 % (0-10); Red Blood Cell (RBC) Count 4.95 mill/uL (4.20-5.40)
[2021-10-22 03:16] LABS: ALT (SGPT) 31 U/L (8-55); AST (SGOT) 21 U/L (5-34); Albumin 4.1 g/dL (3.5-5.0); Alkaline Phosphatase 77 U/L (40-110); Anion Gap 17 mmol/L (10-20); BUN (Urea Nitrogen) 12 mg/dL (7.0-18.7); Bilirubin, Total 0.7 mg/dL (0.2-1.2); Calc. Creatinine Clearance 0 mL/min (70-130); Calcium 8.7 mg/dL (7.8-10.44); Carbon Dioxide 22 mmol/L (22-29); Chloride 104 mmol/L (98-107); Globulin 2.4 g/dL (2.4-3.5); Glucose 99 mg/dL (70-105); Potassium 4.1 mmol/L (3.5-5.1); Protein, Total 6.5 g/dL (6.0-8.3); Sodium 139 mmol/L (136-145)
== END 2021-10-22 06:10 | disposition home or self-care (01) ==
LOC: MADERS 01:51
DX: J45.901 Unspecified asthma with (acute) exacerbation (principal); I10 Essential (primary) hypertension; G43.909 Migraine, unspecified, not intractable, without status migrainosus; E78.5 Hyperlipidemia, unspecified; E78.00 Pure hypercholesterolemia, unspecified; F17.210 Nicotine dependence, cigarettes, uncomplicated
CPT/HCPCS: 71045; 80053; 84484; 85025; 93005; 96374; 96375; J1885; J2930; J7611

== ENCOUNTER 2022-05-04 13:39 | Emergency (ER) | payer SELFPAY ==
[2022-05-04] MEDS ORDERED: Ketorolac Tromethamine 30 MG/ML VIAL ONE (14:19)
[2022-05-04] MEDS ORDERED: Clindamycin 150 MG CAP ONE (14:19)
== END 2022-05-04 14:40 | disposition home or self-care (01) ==
LOC: MADERS 13:39
DX: G43.909 Migraine, unspecified, not intractable, without status migrainosus (principal); K04.7 Periapical abscess without sinus; K03.81 Cracked tooth; I10 Essential (primary) hypertension; K21.9 Gastro-esophageal reflux disease without esophagitis; E78.5 Hyperlipidemia, unspecified; E78.00 Pure hypercholesterolemia, unspecified; E55.9 Vitamin D deficiency, unspecified; J45.909 Unspecified asthma, uncomplicated; F17.210 Nicotine dependence, cigarettes, uncomplicated; Z79.899 Other long term (current) drug therapy
CPT/HCPCS: 96372; 99283; J1885

== ENCOUNTER 2022-08-25 20:54 | Emergency (ER) | payer MEDICAID, SELFPAY ==
[2022-08-25] MEDS ORDERED: Ketorolac Tromethamine 30 MG/ML VIAL ONE (21:51)
[2022-08-25 22:11] LABS: #Basophils 0.1 thou/uL (0.0-0.2); #Eosinphils 0.2 thou/uL (0.0-0.7); #Lymphocytes 1.9 thou/uL (1.20-3.40); #Monocytes 0.4 thou/uL (0.11-0.59); #Neutrophils 7.7 thou/uL (1.40-6.50); %Lymphocytes 18.7 % (21.0-51.0); %Monocytes 3.7 % (0.0-10.0); %Neutrophils 74.5 % (42.0-75.0); Hemoglobin 13.1 g/dL (12.0-16.0); Mean Corpuscular HGB CONC 34.2 g/dL (32.0-36.0); Mean Corpuscular Hemoglobin 31.1 pg (27.0-31.0); Mean Corpuscular Volume 90.8 fl (78.0-98.0); Mean Platelet Volume 8.2 fL (7.4-10.4); Platelet Count 266 10x3/uL (130-400); RBC Distribution Width 12.7 % (11.5-14.5); White Blood Cell (WBC) Count 10.3 10x3/uL (4.8-10.8)
[2022-08-25 22:31] LABS: ALT (SGPT) 22 U/L (8-55); AST (SGOT) 20 U/L (5-34); Albumin 3.9 g/dL (3.5-5.0); Alkaline Phosphatase 95 U/L (40-110); Anion Gap 14 mmol/L (10-20); BUN (Urea Nitrogen) 13 mg/dL (7.0-18.7); Bilirubin, Total 0.2 mg/dL (0.2-1.2); Calc. Creatinine Clearance 0 mL/min (70-130); Calcium 9.6 mg/dL (7.8-10.44); Carbon Dioxide 23 mmol/L (22-29); Chloride 105 mmol/L (98-107); Estimated GFR 106; Globulin 2.9 g/dL (2.4-3.5); Glucose 144 mg/dL (70-105); Potassium 3.3 mmol/L (3.5-5.1); Protein, Total 6.8 g/dL (6.0-8.3); Sodium 139 mmol/L (136-145)
[2022-08-25 23:32] LABS: Amphetamine Not Detected (NotDetected); Barbiturates Screen Not Detected (NotDetected); Benzodiazepine Screen Not Detected (NotDetected); Cocaine Metabolite Screen Not Detected (NotDetected); Medtox Control Line Valid? VALID (VALID); Methadone Not Detected (NotDetected); Methamphetamine Not Detected (NotDetected); Opiate Screen Not Detected (NotDetected); Oxycodone Screen Not Detected (NotDetected); Phencyclidine (PCP) Not Detected (NotDetected); THC/Cannabinoid Screen Not Detected (NotDetected); Tricyclic Screen Not Detected (NotDetected)
[2022-08-26 01:57] LABS: Troponin I Less than 0.010 ng/mL (< 0.028)
== END 2022-08-26 02:30 | disposition home or self-care (01) ==
LOC: MADERS 20:54
DX: R07.89 Other chest pain (principal); I10 Essential (primary) hypertension; E78.00 Pure hypercholesterolemia, unspecified; F17.210 Nicotine dependence, cigarettes, uncomplicated; Z79.899 Other long term (current) drug therapy
CPT/HCPCS: 71045; 80053; 80306; 84484; 85025; 93005; 96374; J1885

== ENCOUNTER 2022-10-22 11:55 | Emergency (ER) | payer SELFPAY ==
[2022-10-22] MEDS ORDERED: Ipratropium/Albuterol 3 ML NEB ONE ×2 (12:14→12:46)
[2022-10-22] MEDS ORDERED: predniSONE 20 MG TAB ONE (12:14)
[2022-10-22] MEDS ORDERED: predniSONE 10 MG TAB ONE (12:14)
== END 2022-10-22 13:21 | disposition home or self-care (01) ==
LOC: MADERS 11:55
DX: J45.901 Unspecified asthma with (acute) exacerbation (principal); E78.00 Pure hypercholesterolemia, unspecified; I10 Essential (primary) hypertension; F17.210 Nicotine dependence, cigarettes, uncomplicated
CPT/HCPCS: 71045; 93005; J7512; J7620

== ENCOUNTER 2022-11-07 10:30 | Emergency (ER) | payer OTHER, SELFPAY ==
[2022-11-07] MEDS ORDERED: Ipratropium/Albuterol 3 ML NEB ONE (10:50)
[2022-11-07] MEDS ORDERED: methylPREDNISolone Sod Succ/PF 125 MG/2 ML VIAL ONE (10:50)
== END 2022-11-07 11:49 | disposition home or self-care (01) ==
LOC: MADERS 10:30
DX: J45.901 Unspecified asthma with (acute) exacerbation (principal); I10 Essential (primary) hypertension; K21.9 Gastro-esophageal reflux disease without esophagitis; E78.00 Pure hypercholesterolemia, unspecified; E55.9 Vitamin D deficiency, unspecified; F17.210 Nicotine dependence, cigarettes, uncomplicated; Z79.899 Other long term (current) drug therapy
CPT/HCPCS: 71045; 96372; J2930; J7620

== ENCOUNTER 2022-11-27 11:41 | Emergency (ER) | payer OTHER ==
[2022-11-27] MEDS ORDERED: Ipratropium/Albuterol 3 ML NEB ONE (12:30)
[2022-11-27] MEDS ORDERED: predniSONE 20 MG TAB ONE (12:34)
[2022-11-27] MEDS ORDERED: Clindamycin 150 MG CAP ONE (12:34)
== END 2022-11-27 13:24 | disposition home or self-care (01) ==
LOC: MADERS 11:41
DX: J45.901 Unspecified asthma with (acute) exacerbation (principal); K04.7 Periapical abscess without sinus; I10 Essential (primary) hypertension; K21.9 Gastro-esophageal reflux disease without esophagitis; E78.00 Pure hypercholesterolemia, unspecified; F17.210 Nicotine dependence, cigarettes, uncomplicated; E55.9 Vitamin D deficiency, unspecified; Z79.899 Other long term (current) drug therapy
CPT/HCPCS: J7512; J7620

== ENCOUNTER 2023-01-12 19:13 | Emergency (ER) | payer MEDICAID, SELFPAY ==
[2023-01-12 20:06] LABS: Bilirubin Negative (Negative); Blood, Urine Negative (Negative); Clarity Clear (Clear); Glucose, Urine (Dipstick) Negative (Negative); Ketone, Urine Negative (Negative); Leukocyte Negative (Negative); Nitrite Negative (Negative); Protein, Urine (Dipstick) Negative (Neg-Trace); Specific Gravity, Urine 1.025 (1.005-1.030); Urobilinogen 0.2 mg/dL (Less than 2)
[2023-01-12] MEDS ORDERED: Aspirin Chewable 81 MG TAB ONE (20:06)
[2023-01-12] MEDS ORDERED: Nitroglycerin 0.4 MG TAB 1 EACH ONE (20:06)
[2023-01-12 20:09] LABS: #Basophils 0.1 thou/uL (0.0-0.2); #Eosinphils 0.2 thou/uL (0.0-0.7); #Lymphocytes 3.1 thou/uL (1.20-3.40); #Monocytes 0.5 thou/uL (0.11-0.59); #Neutrophils 6.3 thou/uL (1.40-6.50); %Basophils 1.1 % (0.0-1.0); %Eosinophils 2.4 % (0.0-10.0); %Lymphocytes 30.2 % (21.0-51.0); %Monocytes 4.8 % (0.0-10.0); %Neutrophils 61.5 % (42.0-75.0); Hemoglobin 13.9 g/dL (12.0-16.0); Mean Corpuscular HGB CONC 32.2 g/dL (32.0-36.0); Mean Corpuscular Hemoglobin 30.4 pg (27.0-31.0); Mean Corpuscular Volume 94.5 fl (78.0-98.0); Mean Platelet Volume 10.6 fL (7.4-10.4); Platelet Count 229 10x3/uL (130-400); RBC Distribution Width 13.7 % (11.5-14.5); Red Blood Cell (RBC) Count 4.57 mill/uL (4.20-5.40); White Blood Cell (WBC) Count 10.2 10x3/uL (4.8-10.8)
[2023-01-12 20:31] LABS: ALT (SGPT) 31 U/L (8-55); AST (SGOT) 50 U/L (5-34); Albumin 4.2 g/dL (3.5-5.0); Alkaline Phosphatase 85 U/L (40-110); Anion Gap 15 mmol/L (10-20); BUN (Urea Nitrogen) 12 mg/dL (7.0-18.7); Bilirubin, Total 0.3 mg/dL (0.2-1.2); Calc. Creatinine Clearance 0 mL/min (70-130); Calcium 9.6 mg/dL (7.8-10.44); Carbon Dioxide 23 mmol/L (22-29); Chloride 107 mmol/L (98-107); Estimated GFR 97; Globulin 2.6 g/dL (2.4-3.5); Glucose 91 mg/dL (70-105); Lipase 17 U/L (8-78); Potassium 3.9 mmol/L (3.5-5.1); Protein, Total 6.8 g/dL (6.0-8.3); Sodium 141 mmol/L (136-145)
[2023-01-12] MEDS ORDERED: Ipratropium/Albuterol 3 ML NEB ONE (21:47)
== END 2023-01-12 23:19 | disposition home or self-care (01) ==
LOC: MADERS 19:13
DX: R07.89 Other chest pain (principal); I10 Essential (primary) hypertension; K21.9 Gastro-esophageal reflux disease without esophagitis; E78.00 Pure hypercholesterolemia, unspecified; E55.9 Vitamin D deficiency, unspecified; F17.210 Nicotine dependence, cigarettes, uncomplicated; J45.909 Unspecified asthma, uncomplicated; Z79.899 Other long term (current) drug therapy
CPT/HCPCS: 71045; 80053; 81003; 83690; 84484; 85025; 93005; J7620

== ENCOUNTER 2023-05-15 17:29 | Emergency (ER) | payer SELFPAY ==
[2023-05-15] MEDS ORDERED: Sodium Chloride 0.9% 1,000 ML ONE (18:16)
[2023-05-15] MEDS ORDERED: Ipratropium/Albuterol 3 ML NEB ONE (18:16)
[2023-05-15] MEDS ORDERED: methylPREDNISolone Sod Succ/PF 125 MG/2 ML VIAL ONE (18:16)
[2023-05-15 18:43] LABS: Band 1 % (5-11); Hematocrit 42.7 % (36.0-47.0); Hemoglobin 14.3 g/dL (12.0-16.0); Lymphocytes 17 % (21-51); MDiff Complete? YES; Mean Corpuscular HGB CONC 33.5 g/dL (32.0-36.0); Mean Corpuscular Hemoglobin 30.5 pg (27.0-31.0); Mean Corpuscular Volume 91.2 fl (78.0-98.0); Mean Platelet Volume 11.2 fL (7.4-10.4); Monocytes 1 % (0-10); Neutrophil 81 % (42-75); Platelet Adequacy Comment Appears Adequate; Platelet Count 233 10x3/uL (130-400); RBC Distribution Width 13.5 % (11.5-14.5); Red Blood Cell (RBC) Count 4.68 mill/uL (4.20-5.40); White Blood Cell (WBC) Count 9.8 10x3/uL (4.8-10.8)
[2023-05-15 18:48] LABS: ALT (SGPT) 14 U/L (8-55); AST (SGOT) 16 U/L (5-34); Albumin 4.3 g/dL (3.5-5.0); Alkaline Phosphatase 87 U/L (40-110); Anion Gap 14 mmol/L (10-20); BUN (Urea Nitrogen) 12 mg/dL (7.0-18.7); Bilirubin, Total 0.3 mg/dL (0.2-1.2); Calc. Creatinine Clearance 0 mL/min (70-130); Calcium 9.4 mg/dL (7.8-10.44); Carbon Dioxide 20 mmol/L (22-29); Chloride 109 mmol/L (98-107); Estimated GFR 110; Globulin 2.7 g/dL (2.4-3.5); Glucose 120 mg/dL (70-105); Potassium 4.1 mmol/L (3.5-5.1); Sodium 139 mmol/L (136-145)
[2023-05-15 18:49] LABS: Troponin I 0.011 ng/mL (< 0.028)
== END 2023-05-15 19:26 | disposition home or self-care (01) ==
LOC: MADERS 17:29
DX: J45.901 Unspecified asthma with (acute) exacerbation (principal); E86.0 Dehydration; I10 Essential (primary) hypertension; F17.210 Nicotine dependence, cigarettes, uncomplicated; E55.9 Vitamin D deficiency, unspecified; Z79.899 Other long term (current) drug therapy
CPT/HCPCS: 71045; 80053; 84484; 85025; 93005; 94760; 96361; 96374; J2930; J7050; J7620

== ENCOUNTER 2023-09-11 10:59 | Emergency (ER) | payer SELFPAY, OTHER ==
[2023-09-11] MEDS ORDERED: Lidocaine-Prilocaine 2.5% Cream 5 GM TUBE ONE (12:11)
[2023-09-11 12:29] LABS: Pregnancy Test - Urine (BHCG) Negative (Negative); Pregu Control Background? CLEAR/WHITE (CLR/WHITE); Pregu Control Bar Appear? YES (CONTROL BAR); Specific Gravity 1.018 (1.002-1.036)
[2023-09-11] MEDS ORDERED: Lidocaine 1% w/Epinephrine 1:100K 20 ML VIAL ONE (12:30)
[2023-09-11] MEDS ORDERED: Sulfameth/Trimethoprim DS 800-160mg TAB ONE (13:07)
== END 2023-09-11 13:50 | disposition home or self-care (01) ==
LOC: MADERS 10:59
DX: N61.1 Abscess of the breast and nipple (principal); I10 Essential (primary) hypertension; E78.00 Pure hypercholesterolemia, unspecified; F17.210 Nicotine dependence, cigarettes, uncomplicated
CPT/HCPCS: 10060; 81025; 87070; 87205

== ENCOUNTER 2023-11-17 17:39 | Emergency (ER) | payer SELFPAY ==
[2023-11-17] MEDS ORDERED: methylPREDNISolone Sod Succ/PF 125 MG/2 ML VIAL ONE (18:02)
[2023-11-17] MEDS ORDERED: Ipratropium/Albuterol 3 ML NEB ONE (18:02)
[2023-11-17] MEDS ORDERED: Famotidine 20 MG TAB ONE (18:11)
[2023-11-17] MEDS ORDERED: diphenhydrAMINE 25 MG CAP ONE (18:11)
== END 2023-11-17 18:54 | disposition home or self-care (01) ==
LOC: MADERS 17:39
DX: J45.901 Unspecified asthma with (acute) exacerbation (principal); F41.9 Anxiety disorder, unspecified; B34.9 Viral infection, unspecified; I10 Essential (primary) hypertension; E78.00 Pure hypercholesterolemia, unspecified; F17.210 Nicotine dependence, cigarettes, uncomplicated; Z79.899 Other long term (current) drug therapy
CPT/HCPCS: 71045; 93005; 96372; J2930; J7620

== ENCOUNTER 2024-03-20 19:30 | Emergency (ER) | payer SELFPAY ==
[2024-03-20] MEDS ORDERED: Ipratropium/Albuterol 3 ML NEB ONE (19:41)
[2024-03-20] MEDS ORDERED: Aspirin Chewable 81 MG TAB ONE (20:04)
[2024-03-20] MEDS ORDERED: methylPREDNISolone Sod Succ/PF 125 MG/2 ML VIAL ONE (20:04)
[2024-03-20 20:06] LABS: Eosinophils 1 % (0-10); Hematocrit 40.4 % (36.0-47.0); Hemoglobin 13.2 g/dL (12.0-16.0); Lymphocytes 18 % (21-51); MDiff Complete? YES; Mean Corpuscular HGB CONC 32.6 g/dL (32.0-36.0); Mean Corpuscular Hemoglobin 29.7 pg (27.0-31.0); Mean Corpuscular Volume 91.2 fl (78.0-98.0); Mean Platelet Volume 8.5 fL (7.4-10.4); Monocytes 4 % (0-10); Neutrophil 77 % (42-75); Platelet Count 199 10x3/uL (130-400); RBC Distribution Width 12.7 % (11.5-14.5); Red Blood Cell (RBC) Count 4.43 mill/uL (4.20-5.40); White Blood Cell (WBC) Count 10.8 10x3/uL (4.8-10.8)
[2024-03-20 20:19] LABS: BHCG - Serum Negative (NEGATIVE); Pregs Control Background? CLEAR/WHITE (CLR/WHITE); Pregs Control Bar Appear? YES (CONTROL BAR)
[2024-03-20 20:26] LABS: Troponin I Less than 0.010 ng/mL (< 0.028)
[2024-03-20 20:28] LABS: AST (SGOT) 19 U/L (5-34); Anion Gap 16 mmol/L (10-20); Bilirubin, Total 0.3 mg/dL (0.2-1.2); Calcium 8.6 mg/dL (7.8-10.44); Carbon Dioxide 22 mmol/L (22-29); Chloride 106 mmol/L (98-107); Potassium 3.7 mmol/L (3.5-5.1); Protein, Total 6.3 g/dL (6.0-8.3); Sodium 140 mmol/L (136-145)
[2024-03-20] MEDS ORDERED: Ketorolac Tromethamine 30 MG (1 mL) VIAL ONE (20:41)
[2024-03-20] MEDS ORDERED: Sodium Chloride 0.9% 1,000 ML ONE (20:41)
[2024-03-20 21:10] LABS: ALT (SGPT) 23 U/L (8-55); Albumin 4.1 g/dL (3.5-5.0); Alkaline Phosphatase 107 U/L (40-110); BUN (Urea Nitrogen) 11 mg/dL (7.0-18.7); Calc. Creatinine Clearance 0 mL/min (70-130); Estimated GFR 105; Glucose 105 mg/dL (70-105); Lipase 12 U/L (8-78)
[2024-03-20 23:04] LABS: Troponin I Less than 0.010 ng/mL (< 0.028)
== END 2024-03-20 23:25 | disposition home or self-care (01) ==
LOC: MADERS 19:30
DX: F43.0 Acute stress reaction (principal); R07.9 Chest pain, unspecified; I10 Essential (primary) hypertension; E78.00 Pure hypercholesterolemia, unspecified; F17.210 Nicotine dependence, cigarettes, uncomplicated
CPT/HCPCS: 71045; 80053; 83690; 83735; 83880; 84484; 84703; 85025; 85379; 93005; 96374; J1885; J2930; J7050; J7620

== ENCOUNTER 2024-03-28 04:03 | Emergency (ER) | payer SELFPAY ==
[2024-03-28 04:46] LABS: #Basophils 0.1 thou/uL (0.0-0.2); #Eosinphils 0.2 thou/uL (0.0-0.7); #Lymphocytes 1.4 thou/uL (1.20-3.40); #Monocytes 0.5 thou/uL (0.11-0.59); %Basophils 1.2 % (0.0-1.0); %Eosinophils 2.5 % (0.0-10.0); %Lymphocytes 17.1 % (21.0-51.0); %Monocytes 5.9 % (0.0-10.0); %Neutrophils 73.3 % (42.0-75.0); Hematocrit 41.8 % (36.0-47.0); Hemoglobin 13.3 g/dL (12.0-16.0); Mean Corpuscular HGB CONC 31.9 g/dL (32.0-36.0); Mean Corpuscular Hemoglobin 29.2 pg (27.0-31.0); Mean Corpuscular Volume 91.5 fl (78.0-98.0); Mean Platelet Volume 7.4 fL (7.4-10.4); Platelet Count 228 10x3/uL (130-400); RBC Distribution Width 12.9 % (11.5-14.5); Red Blood Cell (RBC) Count 4.57 mill/uL (4.20-5.40); White Blood Cell (WBC) Count 8.2 10x3/uL (4.8-10.8)
[2024-03-28 05:08] LABS: Troponin I Less than 0.010 ng/mL (< 0.028)
[2024-03-28 05:15] LABS: ALT (SGPT) 22 U/L (8-55); AST (SGOT) 20 U/L (5-34); Alkaline Phosphatase 118 U/L (40-110); Anion Gap 17 mmol/L (10-20); BUN (Urea Nitrogen) 7 mg/dL (7.0-18.7); Bilirubin, Total 0.2 mg/dL (0.2-1.2); Calc. Creatinine Clearance 0 mL/min (70-130); Calcium 9.1 mg/dL (7.8-10.44); Carbon Dioxide 21 mmol/L (22-29); Chloride 108 mmol/L (98-107); Estimated GFR 107; Globulin 2.5 g/dL (2.4-3.5); Glucose 123 mg/dL (70-105); Potassium 4.2 mmol/L (3.5-5.1); Protein, Total 6.5 g/dL (6.0-8.3); Sodium 142 mmol/L (136-145)
[2024-03-28] MEDS ORDERED: Ipratropium/Albuterol 3 ML NEB ONE (05:23)
[2024-03-28] MEDS ORDERED: Ketorolac Tromethamine 30 MG (1 mL) VIAL ONE (05:23)
[2024-03-28] MEDS ORDERED: predniSONE 20 MG TAB ONE (05:35)
== END 2024-03-28 05:52 | disposition home or self-care (01) ==
LOC: MADERS 04:03
DX: M94.0 Chondrocostal junction syndrome [Tietze] (principal); I10 Essential (primary) hypertension; J45.909 Unspecified asthma, uncomplicated; F17.210 Nicotine dependence, cigarettes, uncomplicated
CPT/HCPCS: 36415; 71046; 80053; 84484; 85025; 93005; 96372; J1885; J7512; J7620

== ENCOUNTER 2024-04-24 19:24 | Emergency (ER) | payer SELFPAY ==
[2024-04-24] MEDS ORDERED: Sulfameth/Trimethoprim DS 800-160mg TAB ONE (21:55)
== END 2024-04-24 21:58 | disposition home or self-care (01) ==
LOC: MADERS 19:24
DX: H00.031 Abscess of right upper eyelid (principal); K21.9 Gastro-esophageal reflux disease without esophagitis; I10 Essential (primary) hypertension; E78.00 Pure hypercholesterolemia, unspecified; F17.210 Nicotine dependence, cigarettes, uncomplicated; Z79.899 Other long term (current) drug therapy
CPT/HCPCS: 99283

== ENCOUNTER 2024-04-29 21:25 | Emergency (ER) | payer SELFPAY ==
[2024-04-29] MEDS ORDERED: Lidocaine 1% PF 5 ML VIAL ONE (22:15)
== END 2024-04-29 23:13 | disposition home or self-care (01) ==
LOC: MADERS 21:25
DX: L72.3 Sebaceous cyst (principal); L03.211 Cellulitis of face
CPT/HCPCS: 10060; 87070; 87205

== ENCOUNTER 2024-07-24 19:04 | Emergency (ER) | payer SELFPAY ==
[~2024-07-24 19:04] MED LIST changes: +Iopamidol 370 76% 100 ML VIAL ONE; -Sodium Chloride 0.9% 1,000 ML BAG ONE
[2024-07-24 20:13] LABS: Bilirubin Negative (Negative); Blood, Urine Negative (Negative); Clarity Clear (Clear); Glucose, Urine (Dipstick) Negative (Negative); Ketone, Urine Negative (Negative); Leukocyte Trace (Negative); Nitrite Negative (Negative); Protein, Urine (Dipstick) Negative (Neg-Trace); Urobilinogen 0.2 mg/dL (Less than 2); pH, Urine 7.5 (5.0-9.0)
[2024-07-24 20:16] LABS: Pregnancy Test - Urine (BHCG) Negative (Negative); Pregu Control Bar Appear? YES (CONTROL BAR)
[2024-07-24 20:16] LABS: Band 2 % (5-11); Eosinophils 1 % (0-10); Hematocrit 41.7 % (36.0-47.0); Hemoglobin 13.5 g/dL (12.0-16.0); Lymphocytes 25 % (21-51); MDiff Complete? YES; Mean Corpuscular HGB CONC 32.3 g/dL (32.0-36.0); Mean Corpuscular Hemoglobin 29.5 pg (27.0-31.0); Mean Corpuscular Volume 91.4 fl (78.0-98.0); Mean Platelet Volume 9.1 fL (7.4-10.4); Monocytes 5 % (0-10); Neutrophil 67 % (42-75); Platelet Count 231 10x3/uL (130-400); Red Blood Cell (RBC) Count 4.57 mill/uL (4.20-5.40); White Blood Cell (WBC) Count 10.2 10x3/uL (4.8-10.8)
[2024-07-24 20:17] LABS: Pregu Control Background? CLEAR/WHITE (CLR/WHITE)
[2024-07-24 20:19] LABS: CAUTI Indications for Culture Pelvic or flank pain; RBC/HPF 0-3 HPF (0-3); Squamous Epithelial 0-3 HPF (0-3)
[2024-07-24] MEDS ORDERED: Ondansetron PF 4 MG/2 ML Vial ONE (20:19)
[2024-07-24] MEDS ORDERED: Morphine 4 MG/ML VIAL ONE (20:19)
[2024-07-24 20:20] LABS: Bacteria/HPF Rare-Few HPF (None Seen); Urine Culture Reflex No No
[2024-07-24 20:22] LABS: ALT (SGPT) 19 U/L (8-55); AST (SGOT) 15 U/L (5-34); Albumin 3.7 g/dL (3.5-5.0); Alkaline Phosphatase 87 U/L (40-110); Anion Gap 18 mmol/L (10-20); BUN (Urea Nitrogen) 10 mg/dL (7.0-18.7); Bilirubin, Total 0.2 mg/dL (0.2-1.2); Calc. Creatinine Clearance 0 mL/min (70-130); Carbon Dioxide 22 mmol/L (22-29); Chloride 105 mmol/L (98-107); Estimated GFR 95; Globulin 2.8 g/dL (2.4-3.5); Glucose 99 mg/dL (70-105); Lipase 15 U/L (8-78); Potassium 3.5 mmol/L (3.5-5.1); Protein, Total 6.5 g/dL (6.0-8.3); Sodium 141 mmol/L (136-145)
== END 2024-07-24 21:50 | disposition home or self-care (01) ==
LOC: MADERS 19:04
DX: K52.9 Noninfective gastroenteritis and colitis, unspecified (principal); R03.0 Elevated blood-pressure reading, without diagnosis of hypertension; J45.909 Unspecified asthma, uncomplicated; F17.210 Nicotine dependence, cigarettes, uncomplicated
CPT/HCPCS: 36415; 74177; 80053; 81001; 81025; 83690; 85025; 96374; J2272; J2405; Q9967

== ENCOUNTER 2024-09-06 02:01 | Emergency (ER) | payer SELFPAY ==
[2024-09-06] MEDS ORDERED: Ipratropium Bromide 2.5 ml Neb ONE (02:44)
[2024-09-06] MEDS ORDERED: Albuterol 2.5 MG (3 mL) NEB ONE (02:44)
[2024-09-06] MEDS ORDERED: Azithromycin 500 MG VIAL ONE (02:44)
[2024-09-06] MEDS ORDERED: Dexamethasone 10 MG/ML VIAL ONE (02:44)
[2024-09-06] MEDS ORDERED: Sodium Chloride 0.9% 1,000 ML ONE ×2 (02:45→04:54)
[2024-09-06] MEDS ORDERED: Sodium Chloride 0.9% 250 ML 250 ML ONE ×2 (02:45→04:01)
[2024-09-06] MEDS ORDERED: Magnesium 2 GM/50 ML BAG (IN WATER) ONE (02:45)
[2024-09-06] MEDS ORDERED: Albuterol 2.5 MG (0.5 mL) NEB ONE (02:49)
[2024-09-06 03:04] LABS: INR-International Normal Ratio 1.1; Prothrombin Time 14.2 sec (12.0-14.7)
[2024-09-06 03:05] LABS: PTT 32.4 sec (22.9-36.1)
[2024-09-06 03:06] LABS: Band 3 % (5-11); Lymphocytes 9 % (21-51); MDiff Complete? YES; Monocytes 8 % (0-10); Neutrophil 80 % (42-75)
[2024-09-06 03:07] LABS: Hemoglobin 14.9 g/dL (12.0-16.0); Mean Corpuscular HGB CONC 32.3 g/dL (32.0-36.0); Mean Corpuscular Hemoglobin 29.9 pg (27.0-31.0); Mean Corpuscular Volume 92.4 fl (78.0-98.0); Mean Platelet Volume 9.9 fL (7.4-10.4); Platelet Count 221 10x3/uL (130-400); RBC Distribution Width 13.2 % (11.5-14.5); Red Blood Cell (RBC) Count 4.98 mill/uL (4.20-5.40); White Blood Cell (WBC) Count 7.3 10x3/uL (4.8-10.8)
[2024-09-06 03:08] LABS: D-Dimer Test 0.27 mcg/mL (0.27-0.43)
[2024-09-06 03:12] LABS: ALT (SGPT) 15 U/L (8-55); AST (SGOT) 16 U/L (5-34); Albumin 3.9 g/dL (3.5-5.0); Alkaline Phosphatase 95 U/L (40-110); Anion Gap 13 mmol/L (10-20); BUN (Urea Nitrogen) 9 mg/dL (7.0-18.7); Bilirubin, Total 0.2 mg/dL (0.2-1.2); Calc. Creatinine Clearance 0 mL/min (70-130); Calcium 9.2 mg/dL (7.8-10.44); Carbon Dioxide 22 mmol/L (22-29); Chloride 108 mmol/L (98-107); Estimated GFR 110; Globulin 3.1 g/dL (2.4-3.5); Glucose 100 mg/dL (70-105); Potassium 3.8 mmol/L (3.5-5.1); Sodium 139 mmol/L (136-145)
[2024-09-06 03:13] LABS: Troponin I 0.013 ng/mL (< 0.028)
[2024-09-06] MEDS ORDERED: Acetaminophen 500 MG TAB ONE (03:23)
[2024-09-06] MEDS ORDERED: Ipratropium/Albuterol 3 ML NEB ONE (03:28)
[2024-09-06] MEDS ORDERED: hydrALAZINE 20 MG/ML VIAL ONE (03:36)
[2024-09-06] MEDS ORDERED: Lorazepam 1 MG TAB ONE (03:50)
[2024-09-06] MEDS ORDERED: Vancomycin 1 GM VIAL ONE (04:01)
[2024-09-06] MEDS ORDERED: Vancomycin HCl 500 MG VIAL ONE (04:54)
== END 2024-09-06 05:48 | disposition short-term general hospital (02) ==
LOC: MADERS 02:01
DX: J45.901 Unspecified asthma with (acute) exacerbation (principal); F17.210 Nicotine dependence, cigarettes, uncomplicated; F17.290 Nicotine dependence, other tobacco product, uncomplicated; Z55.6 Problems related to health literacy; Z79.51 Long term (current) use of inhaled steroids; Z79.899 Other long term (current) drug therapy
CPT/HCPCS: 36415; 71045; 80053; 83605; 84484; 85025; 85379; 85610; 85730; 87040; 87428; 93005; 94760; 96361; 96365; 96368; 96375; J0360; J0456; J1100; J3370; J3475; J7030; J7050; J7611; J7620; J7644

== ENCOUNTER 2024-10-05 16:03 | Emergency (ER) | payer SELFPAY ==
[2024-10-05 16:49] LABS: #Basophils 0.1 thou/uL (0.0-0.2); #Eosinophils 0.1 thou/uL (0.0-0.7); #Lymphocytes 1.7 thou/uL (1.20-3.40); #Monocytes 0.5 thou/uL (0.11-0.59); #Neutrophils 3.2 thou/uL (1.40-6.50); %Basophils 1.2 % (0.0-1.0); %Eosinophils 2.3 % (0.0-10.0); %Monocytes 9.1 % (0.0-10.0); %Neutrophils 56.3 % (42.0-75.0); Hematocrit 42.1 % (36.0-47.0); Hemoglobin 13.5 g/dL (12.0-16.0); Mean Corpuscular Hemoglobin 29.4 pg (27.0-31.0); Mean Corpuscular Volume 91.8 fl (78.0-98.0); Mean Platelet Volume 7.4 fL (7.4-10.4); Platelet Count 213 10x3/uL (130-400); RBC Distribution Width 13.5 % (11.5-14.5); Red Blood Cell (RBC) Count 4.59 mill/uL (4.20-5.40); White Blood Cell (WBC) Count 5.6 10x3/uL (4.8-10.8)
[2024-10-05 17:07] LABS: ALT (SGPT) 35 U/L (8-55); AST (SGOT) 20 U/L (5-34); Albumin 3.5 g/dL (3.5-5.0); Alkaline Phosphatase 92 U/L (40-110); Anion Gap 16 mmol/L (10-20); BUN (Urea Nitrogen) 11 mg/dL (7.0-18.7); Bilirubin, Total 0.7 mg/dL (0.2-1.2); Calc. Creatinine Clearance 0 mL/min (70-130); Calcium 9.2 mg/dL (7.8-10.44); Carbon Dioxide 21 mmol/L (22-29); Chloride 105 mmol/L (98-107); Estimated GFR 111; Globulin 3.1 g/dL (2.4-3.5); Glucose 99 mg/dL (70-105); Protein, Total 6.6 g/dL (6.0-8.3); Sodium 138 mmol/L (136-145)
[2024-10-05] MEDS ORDERED: predniSONE 20 MG TAB ONE (17:45)
== END 2024-10-05 17:54 | disposition home or self-care (01) ==
LOC: MADERS 16:03
DX: M54.42 Lumbago with sciatica, left side (principal); R21 Rash and other nonspecific skin eruption; R42 Dizziness and giddiness; R29.701 NIHSS score 1; F17.210 Nicotine dependence, cigarettes, uncomplicated; F17.290 Nicotine dependence, other tobacco product, uncomplicated
CPT/HCPCS: 36415; 70450; 80053; 83735; 85025; 93005; J7512

== ENCOUNTER 2025-08-20 11:56 | Outpatient (CLI) | payer SELFPAY | END 2025-08-20 11:57 | disposition home or self-care (01) | LOC: MADRAD 11:56 | PROVIDERS: ATTEND Family Medicine | DX: J44.89 Other specified chronic obstructive pulmonary disease (principal) | CPT/HCPCS: 71046 ==

== ENCOUNTER 2025-09-17 14:29 | Emergency (ER) | payer SELFPAY ==
[2025-09-17 15:40] LABS: ALT (SGPT) 22 U/L (Less than 34); AST (SGOT) 28 U/L (11-34); Albumin 3.9 g/dL (3.1-4.5); Alkaline Phosphatase 111 U/L (40-110); Anion Gap 15 mmol/L (10-20); BUN (Urea Nitrogen) 9 mg/dL (7.0-18.7); Bilirubin, Total 0.2 mg/dL (0.3-1.2); Calc. Creatinine Clearance 0 mL/min (70-130); Calcium 8.9 mg/dL (7.8-10.44); Carbon Dioxide 22 mmol/L (22-29); Chloride 108 mmol/L (98-107); Globulin 2.9 g/dL (2.4-3.5); Glucose 116 mg/dL (70-105); Potassium 4.2 mmol/L (3.5-5.1); Sodium 141 mmol/L (136-145)
[2025-09-17 15:43] LABS: #Basophils 0.1 thou/uL (0.0-0.2); #Eosinophils 0.2 thou/uL (0.0-0.7); #Lymphocytes 1.5 thou/uL (1.20-3.40); #Monocytes 0.4 thou/uL (0.11-0.59); #Neutrophils 5.6 thou/uL (1.40-6.50); %Basophils 0.9 % (0.0-1.0); %Eosinophils 2.0 % (0.0-10.0); %Lymphocytes 19.2 % (21.0-51.0); %Monocytes 4.6 % (0.0-10.0); %Neutrophils 73.2 % (42.0-75.0); Hematocrit 36.4 % (36.0-47.0); Hemoglobin 11.2 g/dL (12.0-16.0); Mean Corpuscular Hemoglobin 26.9 pg (27.0-31.0); Mean Corpuscular Volume 87.7 fl (78.0-98.0); Platelet Count 335 10x3/uL (130-400); Red Blood Cell (RBC) Count 4.15 mill/uL (4.20-5.40); White Blood Cell (WBC) Count 7.7 10x3/uL (4.8-10.8)
[2025-09-17 15:46] LABS: Troponin I Less than 0.010 ng/mL (< 0.028)
[2025-09-17 15:57] LABS: Bicarbonate (HCO3v) 24.8 mmol/L (22.0-28.0); CO2 Tension (PvCO2) 39.8 mmHg (42.0-51.0); Calcium, Ionized 1.18 mmol/L (1.15-1.33); Chloride 109 mmol/L (98-107); Hemoglobin - Calc 11.6 g/dL (12.0-16.0); Potassium 3.9 mmol/L (3.5-5.1); Sodium 140 mmol/L (138-145); T. Carbon Dioxide 26.0 mmol/L (22.0-28.0); vO2 Saturation-calc 99.3 % (60.0-85.0)
== END 2025-09-17 18:40 | disposition home or self-care (01) ==
LOC: MADERS 14:29
DX: R06.4 Hyperventilation (principal); R06.02 Shortness of breath; J45.909 Unspecified asthma, uncomplicated; Z87.891 Personal history of nicotine dependence; Z79.51 Long term (current) use of inhaled steroids; Z79.899 Other long term (current) drug therapy
CPT/HCPCS: 71045; 80053; 82330; 82803; 83880; 84484; 85025; 85379; 93005; 94760; 96374; J2060

== ENCOUNTER 2025-09-21 20:42 | Emergency (ER) | payer SELFPAY ==
[2025-09-21 21:52] LABS: #Basophils 0.1 thou/uL (0.0-0.2); #Eosinophils 0.2 thou/uL (0.0-0.7); #Lymphocytes 1.9 thou/uL (1.20-3.40); #Monocytes 0.4 thou/uL (0.11-0.59); #Neutrophils 5.9 thou/uL (1.40-6.50); %Basophils 1.0 % (0.0-1.0); %Eosinophils 1.9 % (0.0-10.0); %Lymphocytes 22.5 % (21.0-51.0); %Monocytes 4.9 % (0.0-10.0); %Neutrophils 69.7 % (42.0-75.0); Hematocrit 36.6 % (36.0-47.0); Hemoglobin 11.4 g/dL (12.0-16.0); Mean Corpuscular Hemoglobin 26.8 pg (27.0-31.0); Mean Corpuscular Volume 86.4 fl (78.0-98.0); Platelet Count 352 10x3/uL (130-400); Red Blood Cell (RBC) Count 4.24 mill/uL (4.20-5.40); White Blood Cell (WBC) Count 8.4 10x3/uL (4.8-10.8)
[2025-09-21 22:01] LABS: ALT (SGPT) 22 U/L (Less than 34); AST (SGOT) 24 U/L (11-34); Albumin 3.9 g/dL (3.1-4.5); Alkaline Phosphatase 116 U/L (40-110); Anion Gap 17 mmol/L (10-20); BUN (Urea Nitrogen) 16 mg/dL (7.0-18.7); Bilirubin, Total 0.2 mg/dL (0.3-1.2); Calc. Creatinine Clearance 0 mL/min (70-130); Calcium 9.0 mg/dL (7.8-10.44); Carbon Dioxide 21 mmol/L (22-29); Chloride 106 mmol/L (98-107); Globulin 2.9 g/dL (2.4-3.5); Glucose 115 mg/dL (70-105); Potassium 3.9 mmol/L (3.5-5.1); Sodium 140 mmol/L (136-145)
[2025-09-21 22:05] LABS: Troponin I Less than 0.010 ng/mL (< 0.028)
== END 2025-09-21 22:54 | disposition home or self-care (01) ==
LOC: MADERS 20:42
DX: R51.9 Headache, unspecified (principal); R53.83 Other fatigue; F41.9 Anxiety disorder, unspecified; Z59.71 Insufficient health insurance coverage; Z87.891 Personal history of nicotine dependence
CPT/HCPCS: 71045; 80053; 83880; 84443; 84484; 85025; 85379; 93005; 96374; J2060; J7030

== ENCOUNTER 2025-09-24 20:08 | Emergency (ER) | payer SELFPAY ==
[2025-09-24] MEDS ORDERED: Aspirin Chewable 81 MG TAB ONE (20:35)
[2025-09-24] MEDS ORDERED: Ondansetron PF 4 MG/2 ML Vial ONE (20:35)
[2025-09-24 20:39] LABS: #Basophils 0.1 thou/uL (0.0-0.2); #Eosinophils 0.1 thou/uL (0.0-0.7); #Lymphocytes 1.9 thou/uL (1.20-3.40); #Monocytes 0.5 thou/uL (0.11-0.59); #Neutrophils 6.6 thou/uL (1.40-6.50); %Basophils 0.9 % (0.0-1.0); %Eosinophils 1.2 % (0.0-10.0); %Lymphocytes 21.0 % (21.0-51.0); %Monocytes 5.2 % (0.0-10.0); %Neutrophils 71.8 % (42.0-75.0); Hematocrit 36.1 % (36.0-47.0); Hemoglobin 11.5 g/dL (12.0-16.0); Mean Corpuscular Hemoglobin 27.3 pg (27.0-31.0); Mean Corpuscular Volume 85.4 fl (78.0-98.0); Platelet Count 360 10x3/uL (130-400); Red Blood Cell (RBC) Count 4.23 mill/uL (4.20-5.40); White Blood Cell (WBC) Count 9.2 10x3/uL (4.8-10.8)
[2025-09-24 20:56] LABS: Anion Gap 17 mmol/L (10-20); BUN (Urea Nitrogen) 10 mg/dL (7.0-18.7); Calc. Creatinine Clearance 0 mL/min (70-130); Calcium 9.5 mg/dL (7.8-10.44); Carbon Dioxide 22 mmol/L (22-29); Chloride 105 mmol/L (98-107); Glucose 129 mg/dL (70-105); Magnesium 1.8 mg/dL (1.6-2.6); Potassium 3.6 mmol/L (3.5-5.1); Sodium 140 mmol/L (136-145)
[2025-09-24 20:57] LABS: Troponin I Less than 0.010 ng/mL (< 0.028)
[2025-09-24] MEDS ORDERED: Famotidine 20 MG TAB ONE (22:03)
[2025-09-24 22:20] LABS: Glucose, Urine (Dipstick) Negative (Negative); Leukocyte Negative (Negative); Protein, Urine (Dipstick) Negative (Neg-Trace); Specific Gravity, Urine Greater/Equal 1.030 (1.005-1.030)
[2025-09-24 22:21] LABS: CAUTI Indications for Culture Pelvic or flank pain; RBC/HPF None Seen HPF (0-3); Urine Culture Reflex No No; WBC/HPF 0-3 HPF (0-3)
[2025-09-24 22:26] LABS: Cocaine Metabolite Screen Negative (Negative); THC/Cannabinoid Screen Negative (Negative); Tricyclic Screen Negative (Negative)
[2025-09-24 22:58] LABS: Troponin I 0.011 ng/mL (< 0.028)
== END 2025-09-24 23:15 | disposition home or self-care (01) ==
LOC: MADERS 20:08
DX: R07.89 Other chest pain (principal); E86.0 Dehydration; I10 Essential (primary) hypertension; F41.9 Anxiety disorder, unspecified; G43.909 Migraine, unspecified, not intractable, without status migrainosus; Z75.3 Unavailability and inaccessibility of health-care facilities; Z87.891 Personal history of nicotine dependence; Z79.899 Other long term (current) drug therapy
CPT/HCPCS: 71045; 80048; 80306; 81001; 83735; 83880; 84484; 85025; 85379; 93005; 96361; 96374; 96375; J2270; J2405; J7030